=== PATIENT | female | born 1990 | race Caucasian/White ===

== ENCOUNTER → 2023-11-04 08:18 | Outpatient (BNVA) | payer BC, SELFPAY | PROVIDERS: PCP Internal Medicine; Visit Provider Physician Assistant Surgical ==

== ENCOUNTER 2023-12-02 08:44 | Outpatient (AMB) | payer BC, SELFPAY ==
--- NOTE | 2023-12-02 08:36 | MHC.OFFVISWM ---
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 She heard about our program from the internet. Her goal is to lose weight and achieve a healthy lifestyle. She reports first being concerned about her weight 20 years, highest weight to date was 255. Initial weight upon presentation of the surgical weight loss clinic on 11/04/2023 was 255.6 lb with a BMI of 42.5. Current weight is 253 pounds with a BMI of 42.1. She has tried multiple methods of weight loss including fad diets without permanent results. She lives with her BF and kid. 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 She wakes at:?6am, and goes to bed at?1030pm. Dinner is at 5 pm. Breakfast: 2-3 eggs low carb wrap or toast AM snack: protein bar - pure protein or quest Lunch: chicken sandwich wrap or leftovers PM snack: protein cookie or chips Dinner: pasta, lasagne, hot dogs, mac and cheese After dinner: ice cream Other snacks: chips, peanut butter, cookies Liquids: 80 oz water, no soda, no juice, kandis nu Alcohol/marijuana/tobacco intake: none Exercise: on/off walking pad sometimes joined [employer] in [place]. GERD score: 6 QUINN score: 2 ESS score: 7 QOL score: 113 PFSH Surgical History No pertinent past surgical history Family History Family/Other No problems noted. Social History Alcohol intake: never Patient Tobacco Use Status: Never used Tobacco Telehealth Telehealth Telehealth Platform: Telephone Location of provider rendering services: practice address Location of patient: address on file Patient Identification confirmed using: Name, : Yes Telehealth method: voice only Patient verbally consented to treatment: Yes Patient verbally consented to billing insurance company: Yes Patient informed of any privacy concerns related to visit: Yes Minutes spent on Phone/Video with Pt.: 30 Assessment & Plan Assessment & Plan (1) Morbid obesity: Code(s): E66.01 - Morbid (severe) obesity due to excess calories Category: Medical Plan: This is a?33 yo female who will start our SWL program to prepare for bariatric surgery.? Blood work, CXR, ECG, Abd US and UGI have been ordered. She is being scheduled for initial consultations. She will start SWL classes and watch the first three videos before her next appointment. 1. You have been given a link to our software familia ([employer]) to generate an individualized nutritional and exercise plan specific for you. Please send me a screenshot of the plans you will generate Meal to include lean meat (beef, fish, pork, turkey, chicken), or somali yogurt, or egg whites, or beans with a salad with olive oil and fruits (berries, pears, apples, kiwi). Avoid salt, breads, potatoes, rice, pasta, desserts. 2. If you choose shakes, each shake would be drunk slowly, like coffee over a period of 2 hours. 3. If you choose bars, cut each bar in 4 pieces and eat each piece in 30 min to make each bar last 2 hours. 4. I emphasized the importance of measuring accurately the food portion and measure it when serving the food on a plate 5. The meal portions include a specific number of forks of meat (protein) and salad. You always eat the meat portion but you can replace up to half of salad/vegetables portion with rice, potatoes or pasta, or a fruit ?if you like. The less you do it the better weight loss will be. 6. One full-size fork is what can be scooped on the fork without falling aside and not what can be bit with the fork. Use regular forks like those you find in a typical restaurant. 7.? Please send me weight measurements from your body composition scale as soon as possible and then once a week. Always include your diet and exercise plan. The best time to weigh yourself is first thing in the morning after going to the bathroom. 8. The best choice for exercise would be treadmill, stationary bike or elliptical. Please return to your gym, [facility] in [place]. Try all the machines to see which one ou like best in the hopes you will be able to purchase a machine for home use. Alternatively start walking outside daily, tracking calories with a goal of 300 calories per day, daily. You can download the familia Context Relevant which can track your time, distance and calories while walking outside. You press start in the familia when you start and then stop when you are finished. 9.?Goal is to lose at least 1.5-2 lbs per week, and about 10% before surgery, which is about 25 pounds 10. Please follow the diet plan exactly without any change. If you don't like something about the plan or you feel hungry you need to communicate with me so I can help you revise the plan. My cell phone number to communicate with me by text is [phone] Patient is morbidly obese and is not considered stable at this time.?I spent a total of 70 minutes reviewing/updating records, examining the patient and counseling the patient on weight management as detailed above. Orders: Orders Hemoglobin A1c Today E66.01 - Morbid (severe) obesity due to excess calories Complete Blood Count Auto Diff Today E66.01 - Morbid (severe) obesity due to excess calories Vitamin B1 Today E66.01 - Morbid (severe) obesity due to excess calories Vitamin A Today E66.01 - Morbid (severe) obesity due to excess calories TSH reflex Free T4 Today E66.01 - Morbid (severe) obesity due to excess calories Vitamin D 25-OH Total Today E66.01 - Morbid (severe) obesity due to excess calories US abdomen comp w elastography Today E66.01 - Morbid (severe) obesity due to excess calories FL upper GI w air Today E66.01 - Morbid (severe) obesity due to excess calories Insulin Today E66.01 - Morbid (severe) obesity due to excess calories Lipid Panel Today E66.01 - Morbid (severe) obesity due to excess calories IRON PROFILE Today E66.01 - Morbid (severe) obesity due to excess calories Comprehensive Met. Panel Today E66.01 - Morbid (severe) obesity due to excess calories Vitamin B12 and Folate Today E66.01 - Morbid (severe) obesity due to excess calories Zinc Today E66.01 - Morbid (severe) obesity due to excess calories C Reactive Protein Today E66.01 - Morbid (severe) obesity due to excess calories Ferritin Today E66.01 - Morbid (severe) obesity due to excess calories XR chest 2V Today E66.01 - Morbid (severe) obesity due to excess calories ECG 12 lead EKG Today E66.01 - Morbid (severe) obesity due to excess calories Referrals Behavioral Health Referral E66.01 - Morbid (severe) obesity due to excess calories
[2023-12-02 08:40] VITALS: BMI 42.1
== END 2023-12-02 09:24 | disposition home or self-care (01) ==
LOC: HO.HBS 08:44
PROVIDERS: PCP Internal Medicine; Visit Provider Physician Assistant Surgical
DX: E66.01 Morbid (severe) obesity due to excess calories (principal); Z68.41 Body mass index [BMI] 40.0-44.9, adult
CPT/HCPCS: 99205

== ENCOUNTER → 2023-12-02 08:44 | Outpatient (BNVA) | payer BC, SELFPAY | PROVIDERS: PCP Internal Medicine; Visit Provider Physician Assistant Surgical ==

== ENCOUNTER 2023-12-12 08:23 | Outpatient (AMB) | payer BC, SELFPAY ==
--- NOTE | 2023-12-12 08:13 | A.OFFWM_ITS ---
Intake Intake Visit Reasons: VIDEO Intake Allergies No Known Allergies Allergy (Verified 11/04/23 08:41) [facility] Surgical History No pertinent past surgical history Family History Family/Other No problems noted. Social History Alcohol intake: never Patient Tobacco Use Status: Never used Tobacco Behavioral Health Assessment Weight Management Therapy Therapy Notes Details assessment for Weight management program. Presenting Concerns Referral Source Client is self-referred to the program, and she sees MB at [facility] Reason for referral Completion of behavioral health assessment as part of process for weight-loss surgery. Precipitating Event Obesity. Right now is the heaviest she has ever been and is hard to keep up with her kid. Living Situation Current Living Situation Own At risk of losing current housing? No Satisfied with current living situation? Yes Comments Pt lives with her boyfriend and her son. Food/Weight/Diet Expectations of change Goal is to lose at least 1.5-2 lbs. per week, and about 10% before surgery, which is about 25 pounds. PT reports she wants something permanent that will help her to be active, healthier and get rid of her back issues. History/Relationship with food Growing up as a family they used to eat a lot. Her grandmother would diet and she along with her, they would lose 10Lbs but then gain 15 lbs. In childhood her meals were described like this: Breakfast: cereal, lunch was a sandwich with chips, dinner: steak with potatoes and a lot of snacking in between. Example of meals before starting the program. Breakfast: eggs with Burmese cheese in a wrap snack: Protein bar. Lunch: Leftovers or a salad. Snack: chips Dinner: Lasagna, hot dogs, chicken nuggets. Take out 2 times at week (Michael Boss, pizza, Syriac) Dessert: ice-cream. Pm snacks: chips. History/Relationship with weight Overweight since she was 7 year old. Her mom and grandmother were obese. In the last 10 years her lowest weight was 190Lbs and highest is 250Lbs (non- ). When 4 years ago she was 280Lbs and at the end of showed signs of preeclampsia. History/Relationship with dieting - Pt has tried Atkins, weight watchers. -Have lost substantial weight in the pas t working out and tracking macros. At 15 she lost 70Lbs and then at age 19 and lost around the same. She was very regimental while doing this, but once she reached a goal she stop attending the gym and fall back into old eating habits. Binge Eating Do you frequently eat large amounts of food in short periods of time, not feeling physically hungry? Yes Do you feel out of control when you eat a large amount of food in a short period of time? Yes Do you eat large amounts of food rapidly and typically alone? Yes Night Eating Do you wake up at least once during the night to eat? No If you wake up in the night, do you find that it is necessary to eat something in order to fall back asleep? No Do you have little or no appetite in the morning and feel very hungry in the evening, often overeating between dinner and when you go to bed? Yes Social History Family history and relationship PT is in a relationship with current partner 7 years ago, and they have a 3 year old son. Father alive but she doesn't have any contact with him. Mother alive and lives in an in-law apartment in her basement. She has a small family. Was very close to her maternal grandmother who . Mom has some siblings but they aren't close. Parental/Familial hand developer obligations 3 year old son. Developmental history and status None reported. Social support Mom and boyfriend. Community support None. Pentecostalism/Spirituality None. Cultural/Ethnic information . Legal Involvement and History Current or historical involvement with the legal system? None reported. Education Highest grade completed Bachelor's degree. Preferred learning style Written Currently enrolled in educational program? No Interested in further educational program? 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 Employment Employment Status [employer] (Remote job. ) Wants help to find employment? No Meaningful activities Write, read, go hiking. Financial Situation Describe current financial situation Comfortable Financial assistance? None Service Service? No Mental Health and Addiction Treatment Current/Past substance abuse? Yes (When younger smoked marijuana for couple years. ) Comments Alcohol: denies. Cigarettes: None Denies use of edibles. Current/Past addictive behavior concerns? No Psychiatric history PT reports she currently attends counseling, and has been on and off since a teenager. Currently she is working on motherhood challenges and learning to self-regulate to better support her son. They do neurofeedback and this is also helping with sleeping issues she had. As a teenager due to depression, as she grew up she comes back when feel she needs the support. Denies any Hx of SI/Sa, self-harm, other-harm. Never in Crisis or inpatient for mental health. Medical and Physical Health Summary Additional Medical History not covered in history scoliosis leading to back problems. Sexual History concerns None reported. Physical exam in the last year? No Pain Screening Current pain? No Pain in the last few months? Yes Comments Back pain due to scoliosis. In September she had a lapse with pain due to sciatica and scoliosis. Medications Is the patient compliant with medications? Not applicable Does the patient have Caraballo Guardian in place? Not applicable Does the patient use complimentary health approaches? Yes (Biofeedback.) Trauma/Abuse History History of trauma? No Questionnaires PHQ-9 Over the last 2 weeks, how often have you been bothered by any of the following problems? 1. Little interest or pleasure in doing things: not at all 2. Feeling down, depressed, or hopeless: not at all 3. Trouble falling or staying asleep, or sleeping too much: several days 4. Feeling tired or having little energy: several days 5. Poor appetite or overeating: several days 6. Feeling bad about yourself - or that you are a failure or have let yourself or your family down: not at all 7. Trouble concentrating on things, such as reading the newspaper or watching television: not at all 8. Moving or speaking so slowly that other people could have noticed. Or the opposite - being so fidgety or restless that you have been moving around a lot more than usual: not at all 9. Thoughts that you would be better off or of hurting yourself in some way: not at all Total score: 3 Depression Screening Interpretation: Negative (Scores from when she started program. Will administer again next visit. ) Depression Screening Done: Yes Source: Developed by Drs. Jeremias Montesinos, Joan Gutierres, Kev Mcgarry and colleagues, with an educational juan from [employer]. Binge Eating Scale Group 1 A. I don't feel self-conscious about my wt. or body size when I'm with others. B. I feel concerned about how I look to others, but it normally does not make me fell disappointed with myself C. I do get self-conscious about my appearance and wt. which makes me feel disappointed in myself. D. I feel very self-conscious about my wt. and frequently I feel intense shame and disgust for myself. I try to avoid social contacts because of my self-consciousness. Response Group 1: C Group 2 A. I don't have any difficulty eating slowly in the proper manner. B. Although I seem to gobble down foods, I don't end up feeling stuffed because of eating to much. C. At times, I tend to eat quickly and then, I feel uncomfortably full afterw ards. D. I have the habit of bolting down my food, without really chewing it. When this happens I usually feel uncomfortably stuffed because I've eaten to much. Response Group 2: C Group 3 A. I feel capable to control my eating urges when I want to. B. I feel like I have failed to control my eating more than the average person. C. I feel utterly helpless when it comes to feeling in control of my eating urges. D. Because I feel so helpless about controlling my eating I have become very desperate about trying to get control. Response Group 3: B Group 4 A. I don't have the habit of eating when I'm bored. B. I sometimes eat when I'm bored, but often I'm able to get busy and get my mind off food. C. I have a regular habit of eating when I'm bored, but occasionally, I can use some other activity to get my mind off eating. D. I have a strong habit of eating when I'm bored. Nothing seems to help me breath the habit. Response Group 4: D Group 5 A. I'm usually physically hungry when I eat something. B. Occasionally, I eat something on impulse even though I really am not hungry. C. I have the regular habit of eating foods, that I might not really enjoy, to satisfy a hungry feeling even though physically, I don't need the food. D. Although I'm not physically hungry, I get a hungry feeling in my mouth that only seems to be satisfied when I eat a food, like sandwich, that fills my mouth. Sometimes, when I eat the food to satisfy my mouth hunger, I then spit the food out so I won't gain weight. Response Group 5: B Group 6 A. I don't feel any guilt or self-hate after I overeat. B. After I overeat, occasionally I feel guilt or self-hate. C. Almost all the time I experience strong guilt or self-hate after I overeat. Response Group 6: B Group 7 A. I don't lose total control of my eating when dieting even after periods when I overeat. B. Sometimes when I eat a forbidden food on a diet, I feel like I blew it and eat even more. C. Frequently, I have the habit of saying to myself, I've blown it now, why not go all the way, when I overeat on a diet. When that happens I eat more. D. I have a regular habit of starting a strict diets for myself but I break the diets by going on an eating binge. My life seems to be either a feast or famine. Response Group 7: B Group 8 A. I rarely eat so much food that I feel uncomfortably stuffed afterwards. B. Usually about once a month, I each such a quantity of food, I end up feeling very stuffed. C. I have regular periods during the month when I eat large amounts of food, either at mealtime or at snacks. D. I eat so much food that I regularly feel quite uncomfortable after eating and sometimes a bit nauseous. Response Group 8: C Group 9 A. My level of calorie intake does not go up very high or go down very low on a regular basis. B. Sometimes after I overeat, I will try to reduce my caloric intake to almost nothing to compensate for the excess calories I've eaten. C. I have a regular habit of overeating during the night. It seems that my routine is not to be hungry in the morning but overeat in the evening. D. In my adult years, I have had week-long periods where I practically starve myself. This follows periods when I overeat. It seems I live a life of either feast or famine. Response Group 9: A Group 10 A. I usually am able to stop eating when I want to. I know when enough is enough. B. Every so often, I experience a compulsion to eat which I can't seem to co ntrol. C. Frequently, I experience strong urges to eat which I seem unable to control, but at other times I can control my eating urges. D. I feel incapable of controlling urges to eat. I have a fear of not being able to stop eating voluntarily. Response Group 10: B Group 11 A. I don't have any problem stopping eating when I feel full. B. I usually can stop eating when I feel full but occasionally overeat leaving me feeling uncomfortably stuffed. C. I have a problem stopping eating once I start and usually I feel uncomfortably stuffed after I eat a meal. D. Because I have a problem not being able to stop eating when I want, I sometimes have to induce vomiting to relieve my stuffed feeling. Response Group 11: C Group 12 A. I seem to eat just as much when I'm with others, Family social gatherings as when I'm by myself. B. Sometimes, when I'm with other persons, I don't eat as much as I want to eat because I'm self-conscious about my eating. C. Frequently, I eat only a small amount of food when others are present, because I'm very embarrassed about my eating. D. I feel so ashamed about overeating that I pick times to overeat when I know no one will see me. I feel like a closet eater. Response Group 12: B Group 13 A. I eat three meals a day with only an occasional between meal snack. B. I eat 3 meals a day, but I also normally snack between meals. C. When I am snacking heavily, I get in the habit of skipping regular meals. D. There are regular periods when I seem to be continually eating, with no planned meals. Response Group 13: B Group 14 A. I don't think much about trying to control unwanted eating urges. B. At least some of the time, I feel my thoughts are pre-occupied with trying to control my eating urges. C. I feel that frequently I spend much time thinking about how much I ate or about trying not to eat anymore. D. It seems to me that most of my waking hours are pre-occupied by thoughts about eating or not eating. I feel like I'm constantly struggling not to eat. Response Group 14: C Group 15 A. I don't think about food a great deal. B. I have strong craving for food but they last only for brief periods of time. C. I have days when I can't seem to think about anything else but food. D. Most of my days seem to be pre-occupied with thoughts about food. I feel like I live to eat. Response Group 15: C Group 16 A. I usually know whether or not I'm physically hungry. I take the right portion of food to satisfy me. B. Occasionally, I feel uncertain about knowing whether or not I'm physically hungry. A these times it's hard to know how much food I should take to satisfy me. C. Even though I might know how many calories I should eat, I don't have any idea what is a normal amount of food for me. Response Group 16: C Binge Eating Score: 24 Score less than 17 Minimal Risk Score between 18-26 Moderate Risk Score between 27-46 High Risk Assessment & Plan Assessment & Plan (1) Adjustment disorder: Code(s): F43.20 - Adjustment disorder, unspecified Qualifiers: Adjustment disorder type: unspecified type Qualified Code(s): F43.20 - Adjustment disorder, unspecified Plan Pt not cleared today, we will meet again on 12/27/23 at 8am for a follow up and finish assesment. PHQ-9 will be administered, and we will explore, emotional eating, binge-eating behaviors, needs and how is she doing with this program. Telehealth Telehealth Telehealth Platform: Dox[employer]ity Location of provider rendering services: other Location of patient: address on file Patient Identification confirmed using: Name, : Yes Telehealth method: voice only Patient verbally consented to treatment: Yes Patient verbally consented to billing insurance company: Yes Patient informed of any privacy concerns related to visit: No Minutes spent on Phone/Video with Pt.: 55 Coding Level of Care Code New Pt Tele Psy Diag Eval ([id number]) Patient Type New Diagnoses Adjustment disorder, unspecified type F43.20 Adjustment disorder type: unspecified type Time Spent (min) 55 Comment 8:05-9:00
== END 2023-12-12 09:06 | disposition home or self-care (01) ==
LOC: HO.HBST 08:23
PROVIDERS: PCP Internal Medicine; Visit Provider Counselor Mental Health
DX: F43.20 Adjustment disorder, unspecified (principal)
CPT/HCPCS: 90791

== ENCOUNTER → 2023-12-12 08:23 | Outpatient (BNVA) | payer BC, SELFPAY | PROVIDERS: PCP Internal Medicine; Visit Provider Counselor Mental Health ==

== ENCOUNTER 2023-12-16 08:05 | Outpatient (REF) | payer BC, SELFPAY ==
--- NOTE | ~2023-12-16 | XR_ITS ---
EXAMINATION: XR CHEST, 2 VIEWS CLINICAL INFORMATION: Morbid obesity. COMPARISON: None. TECHNIQUE: PA and lateral views of the chest were obtained. FINDINGS: Lungs are clear. No consolidation, pneumothorax, or pleural effusion. Cardiac and mediastinal contours are normal. Pulmonary vasculature is unremarkable. Trachea is midline. Osseous structures are unremarkable. XR/XR chest 2V IMPRESSION: Normal chest radiographs. Electronically signed by: Bo Hoff MD 01/09/2024 05:44 PM EDT
[2023-12-16 08:23] LABS: MANUAL DIFF FLAG NO
--- NOTE | 2023-12-16 08:39 | ECG_ITS ---
Test Reason : E66.01 Blood Pressure : / mmHG Vent. Rate : 071 BPM Atrial Rate : 071 BPM P-R Int : 136 ms QRS Dur : 072 ms QT Int : 394 ms P-R-T Axes : 035 029 035 degrees QTc Int : 428 ms Normal sinus rhythm Normal ECG No previous ECGs available Referred By: Vaibhav Urena Electronically Signed By:OBINNA SALEH
[2023-12-16 08:56] LABS: Basophils Percent Auto 0.4 % (0-2); Eosinophils Absolute Auto 0.1 X10*3/uL (0.0-0.4); Eosinophils Percent Auto 1.1 % (0-4); Hematocrit 41.1 % (37.0-47.0); Imm Gran Abs Auto 0.01 X10*3/uL (0.00-0.03); Imm Gran Pct Auto 0.2 % (0.0-0.4); Lymphocytes Absolute Auto 1.5 X10*3/uL (1.2-4.9); Lymphocytes Percent Auto 28.5 % (20-40); Mean Corpuscular HGB Conc 31.6 g/dl (31.0-35.0); Mean Corpuscular Hemoglobin 24.8 pg (27.0-33.0); Mean Corpuscular Volume 78.3 fL (80.0-98.0); Mean Platelet Volume 10.7 fL (9.4-12.3); Monocytes Absolute Auto 0.3 X10*3/uL (0.1-1.2); Monocytes Percent Auto 6.1 % (2-11); Neutrophils Absolute Auto 3.4 x10*3/uL (2.0-8.3); Neutrophils Percent Auto 63.7 % (45-73); Platelet Count 200 X10*3/uL (160-400); Red Blood Count 5.25 X10*6/uL (4.20-5.50); White Blood Count 5.3 X10*3/uL (4.8-10.8)
[2023-12-16 09:26] LABS: Estimated Average Glucose 108 mg/dL; Hemoglobin A1c % 5.4 % (<6.0)
[2023-12-16 09:42] LABS: Alanine Aminotransferase 18 U/L (0-31); Albumin Level 4.5 g/dL (3.5-5.0); Alkaline Phosphatase 72 U/L (39-117); Anion Gap 10 (12-20); Aspartate Amino Transferase 21 U/L (5-31); Bilirubin Total 0.4 mg/dL (0.0-1.0); Blood Urea Nitrogen 12 mg/dL (9-16); Carbon Dioxide 27 mmol/L (22-29); Chloride 106 mmol/L (96-108); Cholesterol 209 mg/dL (<200); Estimated Glomerular Filt Rate > 60; Glucose Random 100 mg/dL (60-115); HDL Cholesterol 43 mg/dL (>40); Iron 51 mcg/dL (30-160); LDL Cholesterol Calculated 139 mg/dL (<100); Percent Iron Saturation 17 % (15-50); Potassium 3.8 mmol/L (3.3-5.1); Sodium 139 mmol/L (135-145); Total Iron Binding Capacity 306 mcg/dL (228-428); Total Protein 7.9 g/dL (6.5-8.0); Triglycerides 136 mg/dL (<150); Unsaturated Iron Binding 255 ug/dL
[2023-12-16 10:14] LABS: Folate 10.9 ng/mL (> or = 4.0); Vitamin B12 790 pg/mL (200-900)
[2023-12-16 10:23] LABS: Ferritin 48 ng/mL (10-122); TSH reflex Free T4 0.85 uIU/mL (0.32-4.0); Vitamin D 25-OH Total 34.7 ng/mL (>30)
[2023-12-16 10:46] LABS: Insulin 10 uU/mL (2-29)
[2023-12-20 16:43] LABS: Zinc 75 mcg/dL (60-130)
[2023-12-22 02:18] LABS: Vitamin A 45 mcg/dL (38-98)
[2023-12-23 06:28] LABS: Vitamin B1 <6 nmol/L (8-30)
== END 2023-12-16 08:06 | disposition home or self-care (01) ==
LOC: HO.XRAY 08:05
PROVIDERS: PCP Internal Medicine; Visit Provider Physician Assistant Surgical
DX: E66.01 Morbid (severe) obesity due to excess calories (principal); Z13.1 Encounter for screening for diabetes mellitus
CPT/HCPCS: 36415; 71046; 80053; 80061; 82306; 82607; 82728; 82746; 83036; 83525; 83540; 84425; 84443; 84590; 84630; 85025; 86140; 93005

== ENCOUNTER 2023-12-23 07:56 | Outpatient (AMB) | payer BC, SELFPAY ==
--- NOTE | 2023-12-23 10:21 | MHC.OFFVISWM ---
VS Expanded 12/23/23 10:43 Height 5 ft 5 in Weight 247 lb 5 oz BMI 41.2 Body Fat % 48.9 Body Fat Mass 121 Fat Free Mass 126.4 Visceral Fat Rating 14 Body Water % 36.4 Body Water Mass 90 Basal Metabolic Rate/Score 1,724 Intake Visit Reasons: TV Follow Up ROBIN / Vaibhav Allergies No Known Allergies Allergy (Verified 12/23/23 10:22) Medication List - Last Reconciled 12/23/23 by Jeremi Jung MD biotin 1 mg PO DAILY multivitamin (Daily Multi-Vitamin tablet) 1 tab PO DAILY thiamine HCl (vitamin B1) 100 mg PO DAILY HPI HPI TV Follow Up ROBIN / Vaibhav : Details: Start time: 10.08am, End time: 10.48am ?I spent 35 minutes speaking with the patient on the phone plus an additional 5 minutes reviewing and updating records for a total of 40 minutes HPI Comments Details: Overall weight loss: 8.1lbs, or 3.17% TBWL Is doing 2 powdered Premier shake (1/2 scoop in 8oz almond milk), 1/2 Pure protein bar, one meal (9 forks of protein and 9 forks of salad or vegetables) and another 1/2 Pure protein bar after dinner Exercise: walking outside [facility] Medical History (Updated 12/23/23 @ 10:23 by Jeremi Jung MD) Scoliosis Hyperlipidemia Surgical History No pertinent past surgical history Family History Family/Other No problems noted. Social History Alcohol intake: never Patient Tobacco Use Status: Never used Tobacco Telehealth Telehealth Telehealth Platform: Telephone Location of provider rendering services: practice address Location of patient: address on file Patient Identification confirmed using: Name, : Yes Telehealth method: voice only Patient verbally consented to treatment: Yes Patient verbally consented to billing insurance company: Yes Patient informed of any privacy concerns related to visit: Yes Minutes spent on Phone/Video with Pt.: 40 Assessment & Plan Assessment & Plan (1) Morbid obesity: Code(s): E66.01 - Morbid (severe) obesity due to excess calories Category: Medical Plan: 1. Plan for lap sleeve gastrectomy. If diaphragmatic or ventral hernias are present at time of surgery, these will be repaired laparoscopically as well. Risks and complications include possible conversion to an open procedure, anastomotic leak, bleeding requiring transfusion, small bowel obstruction, , DVT and pulmonary embolism, cardiac, or pulmonary complications, as intermodal dispatcher complications such as anastomotic ulcer, insufficient weight loss and vitamin deficiencies. I emphasized the importance of close follow-up, adherence to instructions and good communication. 2. Change nutritional plan to 2 powdered Premier shake (ONE scoop EACH in 8oz almond milk), one Pure protein bar, one meal (9 forks of protein and 9 forks of salad or vegetables) and another whole Pure protein bar after dinner 3. Create an exercise plan with the Prepmatic familia 4. Send me weight measurements weekly
[2023-12-23 10:43] VITALS: BMI 41.2
== END 2023-12-23 10:49 | disposition home or self-care (01) ==
LOC: HO.HBS 07:56
PROVIDERS: PCP Internal Medicine; Visit Provider Surgery
DX: E66.01 Morbid (severe) obesity due to excess calories (principal)
CPT/HCPCS: 99214

== ENCOUNTER → 2023-12-23 07:56 | Outpatient (BNVA) | payer BC, SELFPAY | PROVIDERS: PCP Internal Medicine; Visit Provider Surgery ==

== ENCOUNTER → 2023-12-27 14:19 | Outpatient (BNVA) | payer BC, SELFPAY | PROVIDERS: PCP Internal Medicine; Visit Provider Counselor Mental Health ==

== ENCOUNTER → 2023-12-27 14:19 | Outpatient (AMB) | payer BC, SELFPAY ==
--- NOTE | 2023-12-27 14:20 | A.OFFWM_ITS ---
Intake Intake Visit Reasons: VIDEO BH F/U Allergies No Known Allergies Allergy (Verified 12/23/23 10:22) [facility] Medical History (Updated 12/23/23 @ 10:23 by Jeremi Jung MD) Scoliosis Hyperlipidemia Surgical History No pertinent past surgical history Family History Family/Other No problems noted. Social History Alcohol intake: never Patient Tobacco Use Status: Never used Tobacco Behavioral Health Assessment Weight Management Therapy Therapy Notes Details PT is a 33 years old female, who presents for a second visit to complete assessment as part of surgical weight loss program. PT is interested in bariatric surgery due to obesity, her goals are to improve her lifestyle and being active and kepp up with child. PT reports that since starting the program, she has noticed major changes such as becoming conscious when eating, not eating as fast, no longer engaging in eating when bored, or praising her after a good/bad day with food. Thoughts around food have decreased, she's feeling milan quickly and last week she had to eat something out of the plan and did not feel as guilty as she would have. PT denies any major mental health issue leading to crisis or hospitalization in the past, however she attendos counseling and has been doing biofeedback for stress management and sleep issues. PT also, denies any history or recent safety concerns around SI/SA and/or self-harm/other-harm, also there is no history of substance use reported. Pattient siclosed some mild- stress/emotional-eating in the past, however this has resolved, and scores from BES suggest low risk for binge eating behavior as her issues where more to eating habits; PHQ- scores also showed no active symptoms/concerns with depres messi. On the other hand, mental status exam is within normal limits, suggesting person's functioning is not impaired. At this time patient is cleared from the behavioral health standpoint. Presenting Concerns Referral Source Client is self-referred to the program, and she sees MB at [facility] Reason for referral Completion of behavioral health assessment as part of process for weight-loss surgery. Precipitating Event Obesity. Right now is the heaviest she has ever been and is hard to keep up with her kid. Living Situation Current Living Situation Own At risk of losing current housing? No Satisfied with current living situation? Yes Comments Pt lives with her boyfriend and her son. Food/Weight/Diet Expectations of change Goal is to lose at least 1.5-2 lbs. per week, and about 10% before surgery, which is about 25 pounds. PT reports she wants something permanent that will help her to be active, healthier, and get rid of her back issues. Updates 12/26 Current meal: 2 shakes, 2 bars, and 1 meal. Exercise: gym membership. She goes 4 days a week. History/Relationship with food Growing up as a family they used to eat a lot. Her grandmother would diet and she along with her, they would lose 10Lbs but then gain 15 lbs. In childhood her meals were described like this: Breakfast: cereal, lunch was a sandwich with chips, dinner: steak with potatoes and a lot of snacking in between. Example of meals before starting the program. Breakfast: eggs with Maldivian cheese in a wrap snack: Protein bar. Lunch: Leftovers or a salad. Snack: chips Dinner: Lasagna, hot dogs, chicken nuggets. Take out 2 times at week (Michael Boss, pizza, Serbian) Dessert: ice-cream. Pm snacks: chips. History/Relationship with weight Overweight since she was 7 year old. Her mom and grandmother were obese. In the last 10 years her lowest weight was 190Lbs and highest is 250Lbs (non-). When 4 years ago she was 280Lbs and at the end of showed signs of preeclampsia. History/Relationship with dieting - Pt has tried Atkins, weight watchers. -Have lost substantial weight in the pas t working out and tracking macros. At 15 she lost 70Lbs and then at age 19 and lost around the same. She was very regimental while doing this, but once she reached a goal she stop attending the gym and fall back into old eating habits. Binge Eating Do you frequently eat large amounts of food in short periods of time, not feeling physically hungry? Yes Do you feel out of control when you eat a large amount of food in a short period of time? Yes Do you eat large amounts of food rapidly and typically alone? Yes Night Eating Do you wake up at least once during the night to eat? No If you wake up in the night, do you find that it is necessary to eat something in order to fall back asleep? No Do you have little or no appetite in the morning and feel very hungry in the evening, often overeating between dinner and when you go to bed? Yes Social History Family history and relationship PT is in a relationship with current partner 7 years ago, and they have a 3 year old son. Father alive but she doesn't have any contact with him. Mother alive and lives in an in-law apartment in her basement. She has a small family. Was very close to her maternal grandmother who . Mom has some siblings but they aren't close. Parental/Familial ferry terminal supervisor obligations 3 year old son. Developmental history and status None reported. Social support Mom and boyfriend. Community support None. Samaritan/Spirituality None. Cultural/Ethnic information . Legal Involvement and History Current or historical involvement with the legal system? None reported. Education Highest grade completed Bachelor's degree. Preferred learning style Written Currently enrolled in educational program? No Interested in further educational program? 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 ) Wants help to find employment? No Meaningful activities Write, read, go hiking. Financial Situation Describe current financial situation Comfortable Financial assistance? None Service Service? No Mental Health and Addiction Treatment Current/Past substance abuse? Yes (When younger smoked marijuana for couple years. ) Comments Alcohol: denies. Cigarettes: None Denies use of edibles. Current/Past addictive behavior concerns? No Psychiatric history PT reports she currently attends counseling, and has been on and off since a teenager. Currently she is working on motherhood challenges and learning to self-regulate to better support her son. They do neurofeedback and this is also helping with sleeping issues she had. As a teenager due to depression, as she grew up she comes back when feel she needs the support. Denies any Hx of SI/Sa, self-harm, other-harm. Never in Crisis or inpatient for mental health. Medical and Physical Health Summary Additional Medical History not covered in history scoliosis leading to back problems. Sexual History concerns None reported. Physical exam in the last year? No Pain Screening Current pain? No Pain in the last few months? Yes Comments Back pain due to scoliosis. In September she had a lapse with pain due to sciatica and scoliosis. Medications Is the patient compliant with medications? Not applicable Does the patient have Caraballo Guardian in place? Not applicable Does the patient use complimentary health approaches? Yes (Biofeedback.) Trauma/Abuse History0 History of trauma? No Questionnaires PHQ-9 Over the last 2 weeks, how often have you been bothered by any of the following problems? 1. Little interest or pleasure in doing things: not at all 2. Feeling down, depressed, or hopeless: not at all 3. Trouble falling or staying asleep, or sleeping too much: several days (Trouble falling) 4. Feeling tired or having little energy: several days 5. Poor appetite or overeating: not at all 6. Feeling bad about yourself - or that you are a failure or have let yourself or your family down: not at all 7. Trouble concentrating on things, such as reading the newspaper or watching television: not at all 8. Moving or speaking so slowly that other people could have noticed. Or the opposite - being so fidgety or restless that you have been moving around a lot more than usual: not at all 9. Thoughts that you would be better off or of hurting yourself in some way: not at all Total score: 2 Depression Screening Interpretation: Negative Depression Screening Done: Yes 07261 - PHQ-9 Billing: Yes Source: Developed by Drs. Jeremias Montesinos, Joan Gutierres, Kev Mcgarry and colleagues, with an educational juan from [employer]. Binge Eating Scale Group 1 A. I don't feel self-conscious about my wt. or body size when I'm with others. B. I feel concerned about how I look to others, but it normally does not make me fell disappointed with myself C. I do get self-conscious about my appearance and wt. which makes me feel disappointed in myself. D. I feel very self-conscious about my wt. and frequently I feel intense shame and disgust for myself. I try to avoid social contacts because of my self- consciousness. Response Group 1: C Group 2 A. I don't have any difficulty eating slowly in the proper manner. B. Although I seem to gobble down foods, I don't end up feeling stuffed because of eating to much. C. At times, I tend to eat quickly and then, I feel uncomfortably full afterwards. D. I have the habit of bolting down my food, without really chewing it. When this happens I usually feel uncomfortably stuffed because I've eaten to much. Response Group 2: C Group 3 A. I feel capable to control my eating urges when I want to. B. I feel like I have failed to control my eating more than the average person. C. I feel utterly helpless when it comes to feeling in control of my eating ur ges. D. Because I feel so helpless about controlling my eating I have become very desperate about trying to get control. Response Group 3: B Group 4 A. I don't have the habit of eating when I'm bored. B. I sometimes eat when I'm bored, but often I'm able to get busy and get my mind off food. C. I have a regular habit of eating when I'm bored, but occasionally, I can use some other activity to get my mind off eating. D. I have a strong habit of eating when I'm bored. Nothing seems to help me breath the habit. Response Group 4: D Group 5 A. I'm usually physically hungry when I eat something. B. Occasionally, I eat something on impulse even though I really am not hungry. C. I have the regular habit of eating foods, that I might not really enjoy, to satisfy a hungry feeling even though physically, I don't need the food. D. Although I'm not physically hungry, I get a hungry feeling in my mouth that only seems to be satisfied when I eat a food, like sandwich, that fills my mouth. Sometimes, when I eat the food to satisfy my mouth hunger, I then spit the food out so I won't gain weight. Response Group 5: B Group 6 A. I don't feel any guilt or self-hate after I overeat. B. After I overeat, occasionally I feel guilt or self-hate. C. Almost all the time I experience strong guilt or self-hate after I overeat. Response Group 6: B Group 7 A. I don't lose total control of my eating when dieting even after periods when I overeat. B. Sometimes when I eat a forbidden food on a diet, I feel like I blew it and eat even more. C. Frequently, I have the habit of saying to myself, I've blown it now, why not go all the way, when I overeat on a diet. When that happens I eat more. D. I have a regular habit of starting a strict diets for myself but I break the diets by going on an eating binge. My life seems to be either a feast or famine. Response Group 7: B Group 8 A. I rarely eat so much food that I feel uncomfortably stuffed afterwards. B. Usually about once a month, I each such a quantity of food, I end up feeling very stuffed. C. I have regular periods during the month when I eat large amounts of food, either at mealtime or at snacks. D. I eat so much food that I regularly feel quite uncomfortable after eating and sometimes a bit nauseous. Response Group 8: C Group 9 A. My level of calorie intake does not go up very high or go down very low on a regular basis. B. Sometimes after I overeat, I will try to reduce my caloric intake to almost nothing to compensate for the excess calories I've eaten. C. I have a regular habit of overeating during the night. It seems that my routine is not to be hungry in the morning but overeat in the evening. D. In my adult years, I have had week-long periods where I practically starve myself. This follows periods when I overeat. It seems I live a life of either feast or famine. Response Group 9: A Group 10 A. I usually am able to stop eating when I want to. I know when enough is enough. B. Every so often, I experience a compulsion to eat which I can't seem to control. C. Frequently, I experience strong urges to eat which I seem unable to control, but at other times I can control my eating urges. D. I feel incapable of controlling urges to eat. I have a fear of not being able to stop eating voluntarily. Response Group 10: B Group 11 A. I don't have any problem stopping eating when I feel full. B. I usually can stop eating when I feel full but occasionally overeat leaving me feeling uncomfortably stuffed. C. I have a problem stopping eating once I start and usually I feel uncomfortably stuffed after I eat a meal. D. Because I have a problem not being able to stop eating when I want, I sometimes have to induce vomiting to relieve my stuffed feeling. Response Group 11: C Group 12 A. I seem to eat just as much when I'm with others, Family social gatherings as when I'm by myself. B. Sometimes, when I'm with other persons, I don't eat as much as I want to eat because I'm self-conscious about my eating. C. Frequently, I eat only a small amount of food when others are present, because I'm very embarrassed about my eating. D. I feel so ashamed about overeating that I pick times to overeat when I know no one will see me. I feel like a closet eater. Response Group 12: B Group 13 A. I eat three meals a day with only an occasional between meal snack. B. I eat 3 meals a day, but I also normally snack between meals. C. When I am snacking heavily, I get in the habit of skipping regular meals. D. There are regular periods when I seem to be continually eating, with no planned meals. Response Group 13: B Group 14 A. I don't think much about trying to control unwanted eating urges. B. At least some of the time, I feel my thoughts are pre-occupied with trying to control my eating urges. C. I feel that frequently I spend much time thinking about how much I ate or about trying not to eat anymore. D. It seems to me that most of my waking hours are pre-occupied by thoughts about eating or not eating. I feel like I'm constantly struggling not to eat. Response Group 14: C Group 15 A. I don't think about food a great deal. B. I have strong craving for food but they last only for brief periods of time. C. I have days when I can't seem to think about anything else but food. D. Most of my days seem to be pre-occupied with thoughts about food. I feel like I live to eat. Response Group 15: C Group 16 A. I usually know whether or not I'm physically hungry. I take the right portion of food to satisfy me. B. Occasionally, I feel uncertain about knowing whether or not I'm physically hungry. A these times it's hard to know how much food I should take to satisfy me. C. Even though I might know how many calories I should eat, I don't have any idea what is a normal amount of food for me. Response Group 16: C Binge Eating Score: 24 Score less than 17 Minimal Risk Score between 18-26 Moderate Risk Score between 27-46 High Risk Assessment & Plan Assessment & Plan (1) Adjustment disorder: Code(s): F43.20 - Adjustment disorder, unspecified Plan After completing the assessment, comparing scores from Binge eating scale and PHQ9, with mental status evaluation and patient statements, it is considered that there is no risk and/or concerns to move forward with bariatric surgery. This patient has been cleared from standpoint and does not need to follow up with this provider either pre or post-op unless she desires. This provider has advised client to utilize available resources such as peer support group, Facebook group and group therapy, also the patient has been informed of support available at anytime while she is part of this program. Next familia: None Telehealth Telehealth Telehealth Platform: [employer] Location of provider rendering services: practice address Location of patient: address on file Patient Identification confirmed using: Name, : Yes Telehealth method: voice only Patient verbally consented to treatment: Yes Patient verbally consented to billing insurance company: Yes Patient informed of any privacy concerns related to visit: No Minutes spent on Phone/Video with Pt.: 45 Coding Level of Care Code Established Pt Tele Psytx 45 mins (67404) Patient Type Established Diagnoses Adjustment disorder F43.20 Time Spent (min) 45
== END ==
LOC: HO.HBST 14:19
PROVIDERS: PCP Internal Medicine; Visit Provider Counselor Mental Health
DX: F43.20 Adjustment disorder, unspecified (principal)
CPT/HCPCS: 90834

== ENCOUNTER 2023-12-28 08:19 | Outpatient (REF) | payer BC, SELFPAY ==
--- NOTE | ~2023-12-28 | US_ITS ---
EXAMINATION: US COMPLETE ABDOMEN WITH LIVER ELASTOGRAPHY CLINICAL INFORMATION: Morbid obesity. COMPARISON: None available. TECHNIQUE: Real-time imaging of the abdominal viscera. Noninvasive ultrasound liver fibrosis assessment is performed using Mariusz ElastPQ point quantification shear wave elastography (pSWE) with a C5-2 MHz transducer. Multiple elastography samples are obtained. FINDINGS: PANCREAS: The visualized pancreatic head and body are normal in appearance. The remainder of the pancreas is obscured from visualization by the overlying bowel gas. ABDOMINAL AORTA: The proximal, middle, and distal aortic segments are normal in caliber. INFERIOR VENA CAVA: Visualized portions are normal. LIVER: The liver demonstrates normal size and contour but with increased echogenicity suggesting hepatic steatosis. No focal lesion or intrahepatic biliary duct dilatation. The right lobe measures 16.5 cm in length. The left lobe measures 9.5 cm in length. Portal flow is towards the liver (hepatopetal). Shear wave liver elastography median stiffness is 1.44 m/s (reference: normal median stiffness is 1.3 m/s or less). IQR/median stiffness to assess sampling precision is 0.08 (reference: good quality data set is IQR/median stiffness of 0.15 or less). GALLBLADDER: Normal. The gallbladder is physiologically distended without evidence of stones, sludge, polyps, wall thickening or pericholecystic fluid. COMMON BILE DUCT: Normal in caliber measuring 0.6 cm in diameter. RIGHT KIDNEY: Normal. No hydronephrosis. No renal calculi or focal parenchymal lesions. The kidney measures 13.2 cm in maximum dimension. LEFT KIDNEY: Normal. No hydronephrosis. No renal calculi or focal parenchymal lesions. The kidney measures 12.5 cm in maximum dimension. SPLEEN: Normal. The spleen measures 11.1 cm in maximum dimension. FREE FLUID: None. US/US abdomen comp w elastography IMPRESSION: 1. Hepatic steatosis. 2. Liver elastography: In the absence of other known clinical signs, measurements rule out compensated advanced chronic liver disease. If there are known clinical signs, further testing may be needed for confirmation. REFERENCE: Society of Radiologists in Ultrasound Liver Stiffness Thresholds (2019): LIVER STIFFNESS THRESHOLDS: *Liver Stiffness equal or less than 1.3 m/s: High probability of being normal. *Liver Stiffness less than 1.7 m/s: In the absence of other known clinical signs, rules out compensated advanced chronic liver disease. *Liver Stiffness 1.7-2.1 m/s: Suggestive of compensated advanced chronic liver disease but need further test for confirmation. *Liver Stiffness over 2.1 m/s: Rules in compensated advanced chronic liver disease. *Liver Stiffness over 2.4 m/s: Suggestive of clinically significant portal hypertension. QUALITY OF DATA SET: *IQR/Median value equal or less than 0.15 implies a quality data set. *IQR/Median value over 0.15 implies a poor quality data set. SIGNIFICANT CHANGE FROM PRIOR EXAM: Significant change if liver stiffness measurement is 10% or greater from prior exam. OTHER CONSIDERATIONS: The stage of liver fibrosis may be overestimated in the setting of acute hepatitis, liver inflammation, elevated liver function tests, hepatic vascular congestion, obstructive cholestasis, non-fasting state, and infiltrative diseases such as amyloidosis and lymphoma. In some patients with NAFLD, the liver stiffness thresholds for compensated advanced chronic liver disease may be lower. In causes other than viral hepatitis and NAFLD, liver stiffness thresholds are not well established. Electronically signed by: Armani Leung MD 01/07/2024 09:05 AM EDT
== END 2023-12-28 08:20 | disposition home or self-care (01) ==
LOC: HO.US 08:19
PROVIDERS: PCP Internal Medicine; Visit Provider Physician Assistant Surgical
DX: E66.01 Morbid (severe) obesity due to excess calories (principal)
CPT/HCPCS: 76700; 76981

== ENCOUNTER 2024-01-04 06:10 | Day surgery (SDC) | payer BC, SELFPAY ==
--- NOTE | 2024-01-02 14:18 | HO.ANESPROP2 ---
Documented by User: Mary Beyer NP 01/02/24 14:18 HPI - Anesthesia Eval Consult details Narrative: 33yo F for Upper Endoscopy PMFSH Active Problems Active Problems: All Active Problems Scoliosis (Acute) Hyperlipidemia (Acute) Morbid obesity (Acute) Past Medical History Medical History Scoliosis Hyperlipidemia Family History Family History Family/Other No problems noted. Surgical History Surgical History (Updated 01/04/24 @ 07:32 by Thuy Tolentino MD) [place] teeth extracted No pertinent past surgical history Social History Social History Alcohol intake: never Patient Tobacco Use Status: Never used Tobacco Use of substances other than those prescribed or required for medical reasons: No Have you been hit, kicked, punched, or otherwise hurt by someone within the past year? If so, by whom?: No Are you DNR?: No Advance Directives: No Advance Directives Information Provided: Yes Recently lost weight without trying: No Nutrition Risks: No Nutritional Risk Meds Allergies Allergy/AdvReac Type Severity Reaction Status Date / Time No Known Allergies Allergy Verified 12/23/23 10:22 Home Medications ?Medication ?Instructions ?Recorded ?Confirmed ?Last Taken ?Type biotin 1 mg tablet 1 mg PO DAILY 11/04/23 01/04/24 01/02/24 History multivitamin (Daily Multi-Vitamin 1 tab PO DAILY 11/04/23 01/04/24 01/02/24 History tablet) Assessment and Plan Assessment Anesthesia Assessment: Chart Reviewed Documented by User: Thuy Tolentino MD 01/04/24 07:34 PMFSH Active Problems Active Problems: All Active Problems Scoliosis (Acute) Hyperlipidemia (Acute) Morbid obesity (Acute) BMI 39.6 Past Medical History Medical History Scoliosis Hyperlipidemia Family History Family History Family/Other No problems noted. Family history of problems with anesthesia: No Surgical History Surgical History (Updated 01/04/24 @ 07:32 by Thuy Tolentino MD) [place] teeth extracted No pertinent past surgical history History of Problems with Anesthesia: No Social History Social History Alcohol intake: never Patient Tobacco Use Status: Never used Tobacco Use of substances other than those prescribed or required for medical reasons: No Have you been hit, kicked, punched, or otherwise hurt by someone within the past year? If so, by whom?: No Are you DNR?: No Advance Directives: No Advance Directives Information Provided: Yes Recently lost weight without trying: No Nutrition Risks: No Nutritional Risk Meds Allergies Allergy/AdvReac Type Severity Reaction Status Date / Time No Known Allergies Allergy Verified 12/23/23 10:22 Home Medications ?Medication ?Instructions ?Recorded ?Confirmed ?Last Taken ?Type biotin 1 mg tablet 1 mg PO DAILY 11/04/23 01/04/24 01/02/24 History multivitamin (Daily Multi-Vitamin 1 tab PO DAILY 11/04/23 01/04/24 01/02/24 History tablet) Exam Height,Weight and Vital Signs: Height 5 ft 5 in Weight 107.955 kg Vital Signs Temp Pulse Resp BP Pulse Ox O2 Del Method 01/04/24 06:52 96.5 F L 75 16 130/86 96 Room Air Pertinent Lab Results Pertinent Lab Results: Lab Results 01/04/24 Range/Units 06:35 Urine Test NEGATIVE (NEGATIVE) Airway Mallampati Class: II TM Dist: >3cm Neck ROM: Full Loose/Missing/Broken Teeth: Yes ([place] teeth missing. Denies broken or loose teeth) Heart: RRR Lungs: CTAB Assessment and Plan Assessment Anesthesia Assessment: Anesthesia Plan Discussed and Chart Reviewed Final Anesthetic Review Family History of Problems with Anesthesia: No History of Problems with Anesthesia: No NPO: Yes ASA Class: III Final Preanesthetic Review: No Changes in Pt Med Stat, Meds/Allgs Chart Reviewed, Consent Obtained/Reviewed and Anes Risks/Benef Reviewed Patient Risk: Intermediate Procedure Risk: Low Assessment/Block/Sedation in SS: Assess/Block/Sedation-SS Anesthetic Plan Anesthetic Plan: TIVA Disposition: Standard PACU
[2024-01-04 06:17] VITALS: BMI 39.6
[2024-01-04] MEDS: Lactated Ringers 1,000 ML 80 ML IVCONT (06:49)
[2024-01-04 06:52] VITALS: BP 130/86; PULSE 75; RESP 16; TEMP 35.8; O2SAT 96
[2024-01-04 07:11] LABS: UPreg QC Valid YES; Urine Pregnancy NEGATIVE (NEGATIVE)
--- NOTE | 2024-01-04 07:40 | MHC.SHP ---
Pre-Procedural Eval Section A - 24 Hr Update-Section A only Date of Service: 01/04/24 The patient is an INPATIENT: No The patient has been examined within 24 hours of the surgical procedure. The History & Physical has been completed within 30 days and I have reviewed it.: Yes Section B - Complete if H&P > 30 days Chief Complaint: Morbid (severe) obesity due to excess calories Details of Present Illness: GERD Relevant Family History (Specify if Yes): No Relevant Social History: None Present Medications: None Medical History: No relevant PMH History of Previous Operations: No relevant previous surgery Allergies: Allergies Allergy/AdvReac Type Severity Reaction Status Date / Time No Known Allergies Allergy Verified 12/23/23 10:22 Review of Systems Sugical H&P ROS: Negative: Constitution, Cardiovascular, Respiratory, Neurological, Psychiatric, Hem-Onc, Allergic/Immunologic, Gastrointestinal, Genitourinary, Musculoskeletal, Integumentary, Endocrine and Eyes/Ears/Nose/Throat Exam Surgical H&P Exam: Normal: HEENT, Normal: Heart, Normal: Lungs, Normal: Extremities, Normal: Abdomen, Normal: Skin and Normal: Neurological Plan Diagnosis/Plan: Unchanged (EGD to assess etiology of GERD. Risks of bleeding and perforation were discussed with the patient and she is in agreement with the plan.) I have reviewed the history and physical and performed a pertinent physical examination on my patient. No changes have occurred unless specified. Time Spent With Patient Time: Total time managing care of this patient today ____ minutes.
[2024-01-04 08:07] VITALS: BP 107/66; PULSE 83; RESP 12; TEMP 36.1; O2SAT 94
--- NOTE | 2024-01-04 08:11 | P.BOP_ITS ---
Brief Operative Note Date of Service: 01/04/24 Pre-op diagnosis: GERD Post-op diagnosis: same Procedure: PROCEDURE DATE: 01/04/2024 PREOPERATIVE DIAGNOSIS: GERD POSTOPERATIVE DIAGNOSIS: ?Same as above. Normal endoscopy PROCEDURE: [id number]-sfizywaptubm with biopsies Surgeon: Holden Jung M.D.. Ph.D. Fiscal Agent: None ? Anesthesia: IV sedation Estimated blood loss: ?Minimal FINDINGS AND PROCEDURE: ? OPERATIVE INDICATIONS: ?The patient is a 33 year old female known to me who is interested in bariatric surgery. The patient has GERD. Based on this information I recommended an upper endoscopy to evaluate the patient's symptoms. Risks and complications of the surgery were discussed with the patient in advance particularly the possibility of perforation or bleeding that may require surgical intervention. The patient understood the risks and was in agreement with the plan. ? PROCEDURE: After informed consent was obtained by the patient, the patient was ?transferred to the Operating Room and was placed in the supine position.? After successful induction of IV sedation, a mouth block was inserted and the patient was placed in the left lateral decubitus position. An upper endoscopy was performed next, the oropharynx and esophagus appeared within the normal limits. There was no hiatal hernia. The z-line was smooth. Two biopsies were obtained from the distal esophagus 2-3 cm proximal to the GE junction and two additional biopsies from the GE junction. The stomach was entered and it appeared to be of normal size. There was no gastritis. There was no stricture or ulcer. A biopsy was obtained from the gastric fundus and the antrum. No significant bleeding was noted from any of the biopsy sites. Retroflexion of the scope revealed a normal GE junction. The scope was then advanced into the duodenum which appeared to be normal as well. At that point the duodenum ?and the stomach were decompressed and the scope was withdrawn from the patient's mouth. The patient extubated and was transferred in stable condition to the Recovery Room for further care. I was present and performed all steps of the procedure. There were no residents to assist with this case. Phillip Jung M.D., Ph.D. Surgeon: Jeremi Jung MD Anesthesia: MAC Was an Fiscal Agent used for this Procedure?: No Estimated blood loss (mL): 0 IV fluids (mL): 400 Urine output (mL): 0 (No Howard to record output) Pathology: other (1) antrum x1, 2) fundus x1, 3) GE junction x2, 4) distal esophagus x2) Condition: stable Disposition: PACU
[2024-01-04 08:22] VITALS: BP 121/71; PULSE 74; RESP 16; TEMP 36.1; O2SAT 98
[2024-01-04 08:37] VITALS: BP 108/58; PULSE 60; RESP 16; TEMP 36.1; O2SAT 98
== END 2024-01-04 08:59 | disposition home or self-care (01) ==
PROVIDERS: Nurse Practitioner; PCP Internal Medicine; Visit Provider Surgery
PROC: 0DJ08ZZ Inspection of Upper Intestinal Tract, Via Natural or Artificial Opening Endoscopic (ICD-10-PCS; CPT 43235; principal; 2024-01-04 07:30)
DX: K21.9 Gastro-esophageal reflux disease without esophagitis (principal); E66.01 Morbid (severe) obesity due to excess calories; Z68.41 Body mass index [BMI] 40.0-44.9, adult; E78.5 Hyperlipidemia, unspecified; M41.9 Scoliosis, unspecified; Z79.899 Other long term (current) drug therapy
CPT/HCPCS: 43239; 81025; 88305; 88313; 88342; J1100; J1596; J2250; J2704

== ENCOUNTER → 2024-01-04 06:10 | Outpatient (BNV) | payer BC, SELFPAY | PROVIDERS: PCP Internal Medicine; Visit Provider Surgery | DX: K21.9 Gastro-esophageal reflux disease without esophagitis (principal) | CPT/HCPCS: 43239 ==

== ENCOUNTER 2024-02-13 08:49 | Outpatient (REF) | payer BC, SELFPAY ==
--- NOTE | ~2024-02-13 | FL_ITS ---
EXAMINATION: XR FLUOROSCOPY UPPER GI WITH AIR CLINICAL INFORMATION: Preoperative evaluation prior to bariatric surgery COMPARISON: None TECHNIQUE: Fluoroscopic air contrast upper GI examination was performed utilizing standard techniques with thin and thick barium and effervescent granules. Numerous spot images were obtained. FINDINGS: Dual and single contrast images of the esophagus demonstrate normal caliber, contour, and mucosal pattern. No evidence of stricture, mass, or ulcerations identified. Esophageal peristalsis was normal. A very small type I hiatal hernia is present. Mild gastroesophageal reflux seen in the distal esophagus. Dual contrast and single contrast images of the stomach demonstrated normal contour and mucosal pattern without evidence of mass, ulceration, or other abnormality. Contrast freely passed into the gastric antrum and duodenal bulb without delay. Single and air-contrast images of the duodenal bulb demonstrate no abnormality. The duodenal sweep has a normal appearance, course, and mucosal fold appearance. The imaged proximal jejunum has a normal fold pattern and caliber. FLUOROSCOPY TIME: 3 minutes 15 seconds Number of Spot Images: 9 Number of Cine: 11 DOSE AREA PRODUCT: 2522 uGy-m2 (microgray-meter squared) FL/FL upper GI w air IMPRESSION: 1. Very small type I hiatal hernia with mild gastroesophageal reflux. 2. Otherwise unremarkable upper GI series. This procedure was performed by Edilberto Costa PA-C, and supervised by Dr. Petty Electronically signed by: Bo Petty MD 02/13/2024 01:22 PM EDT
== END 2024-02-13 08:50 | disposition home or self-care (01) ==
LOC: HO.XRAY 08:49
PROVIDERS: PCP Internal Medicine; Visit Provider Physician Assistant Surgical
DX: E66.01 Morbid (severe) obesity due to excess calories (principal)
CPT/HCPCS: 74246

== ENCOUNTER → 2024-02-13 08:50 | Outpatient (BNV) | payer BC, SELFPAY | PROVIDERS: PCP Internal Medicine; Visit Provider Radiology Diagnostic Radiology | DX: Z01.818 Encounter for other preprocedural examination (principal) | CPT/HCPCS: 74246 ==

== ENCOUNTER 2024-03-05 07:38 | Outpatient (REF) | payer BC, SELFPAY ==
[2024-03-05 08:28] LABS: MANUAL DIFF FLAG NO
[2024-03-05 08:35] LABS: Basophils Percent Auto 0.5 % (0-2); Eosinophils Absolute Auto 0.1 X10*3/uL (0.0-0.4); Eosinophils Percent Auto 1.4 % (0-4); Hematocrit 41.3 % (37.0-47.0); Hemoglobin 13.1 g/dl (12.0-16.0); Imm Gran Abs Auto 0.01 X10*3/uL (0.00-0.03); Imm Gran Pct Auto 0.2 % (0.0-0.4); Lymphocytes Absolute Auto 1.6 X10*3/uL (1.2-4.9); Lymphocytes Percent Auto 25.3 % (20-40); Mean Corpuscular HGB Conc 31.7 g/dl (31.0-35.0); Mean Corpuscular Volume 78.7 fL (80.0-98.0); Mean Platelet Volume 11.3 fL (9.4-12.3); Monocytes Absolute Auto 0.3 X10*3/uL (0.1-1.2); Monocytes Percent Auto 4.5 % (2-11); Neutrophils Absolute Auto 4.2 x10*3/uL (2.0-8.3); Neutrophils Percent Auto 68.1 % (45-73); Platelet Count 191 X10*3/uL (160-400); Red Blood Count 5.25 X10*6/uL (4.20-5.50); Red Cell Distribution Width 14.7 % (11.0-16.0); White Blood Count 6.2 X10*3/uL (4.8-10.8)
[2024-03-05 08:41] LABS: Prothrombin Time 11.2 SEC (10.9-12.4)
[2024-03-05 08:43] LABS: Partial Thromboplastin Time 31.1 SEC (26.0-36.8)
[2024-03-05 08:57] LABS: Estimated Average Glucose 105 mg/dL; Hemoglobin A1C 116.6501 umol/L; Hemoglobin A1c % 5.3 % (<6.0); Total Hemoglobin (HGBA1C) 3391.1667 umol/L
[2024-03-05 10:55] LABS: Alanine Aminotransferase 18 U/L (0-31); Albumin Level 4.2 g/dL (3.5-5.0); Alkaline Phosphatase 69 U/L (39-117); Anion Gap 13 (12-20); Aspartate Amino Transferase 27 U/L (5-31); Bilirubin Total 0.4 mg/dL (0.0-1.0); Blood Urea Nitrogen 14 mg/dL (9-16); C Reactive Protein 0.63 mg/dL (< or = 0.50); Carbon Dioxide 24 mmol/L (22-29); Chloride 104 mmol/L (96-108); Cholesterol 169 mg/dL (<200); Estimated Glomerular Filt Rate > 60; Glucose Random 90 mg/dL (60-115); HDL Cholesterol 32 mg/dL (>40); LDL Cholesterol Calculated 106 mg/dL (<100); Potassium 4.1 mmol/L (3.3-5.1); Sodium 137 mmol/L (135-145); Total Protein 7.5 g/dL (6.5-8.0); Triglycerides 155 mg/dL (<150)
[2024-03-05 11:11] LABS: Insulin 6 uU/mL (2-29); TSH reflex Free T4 1.11 uIU/mL (0.32-4.0)
== END 2024-03-05 07:39 | disposition home or self-care (01) ==
LOC: HO.LAB 07:38
PROVIDERS: PCP Internal Medicine; Visit Provider Surgery
DX: E66.9 Obesity, unspecified (principal); Z68.38 Body mass index [BMI] 38.0-38.9, adult; E78.5 Hyperlipidemia, unspecified; Z79.01 Long term (current) use of anticoagulants; Z13.1 Encounter for screening for diabetes mellitus
CPT/HCPCS: 36415; 80053; 80061; 83036; 83525; 84443; 85025; 85610; 85730; 86140

== ENCOUNTER 2024-03-07 08:16 | Inpatient (IN) | payer BC, SELFPAY ==
[2024-03-05 12:52] VITALS: BMI 37.8
--- NOTE | 2024-03-06 09:39 | HO.ANESPROP2 ---
Documented by User: Mary Beyer NP 03/06/24 09:40 HPI - Anesthesia Eval Consult details Narrative: 33yo F for Gastrectomy Sleeve- EGD, possible diapragmatic hernia, possible ventral hernia, possible open PMFSH Active Problems Active Problems: All Active Problems BMI 38.0-38.9,adult (Acute) Obesity (Acute) Morbid obesity (Acute) GERD (gastroesophageal reflux disease) (Acute) Scoliosis (Acute) Hyperlipidemia (Acute) Past Medical History Medical History Needle phobia Back pain Degenerative disc disease, lumbar GERD (gastroesophageal reflux disease) Scoliosis Hyperlipidemia Family History Family History Family/Other No problems noted. Family history of problems with anesthesia: No Surgical History Surgical History History of esophagogastroduodenoscopy (EGD) [place] teeth extracted History of Problems with Anesthesia: No Social History Social History Are you a primary healthcare project manager to a significant other at home: No Do you presently have visiting nurse or other home services: No Alcohol intake: never Patient Tobacco Use Status: Former Tobacco user Tobacco use type: Cigarette Years Smoked: 10 Use of substances other than those prescribed or required for medical reasons: No Have you been hit, kicked, punched, or otherwise hurt by someone within the past year? If so, by whom?: No Spiritual Healthcare Practices: none Gnosticist Healthcare Practices: none Cultural Healthcare Practices: none Are you DNR?: No Advance Directives: No ( is primary contat) Advance Directives Information Provided: Yes (as above noted) Advance Directives on File: No Recently lost weight without trying: No Eating poorly because of decreased appetite: No Nutrition Risks: No Nutritional Risk Patient : No FDLMP: 02/20/24 : No Poor oral hygiene: No Meds Allergies Allergy/AdvReac Type Severity Reaction Status Date / Time No Known Allergies Allergy Verified 03/07/24 08:11 Home Medications ?Medication ?Instructions ?Recorded ?Confirmed ?Last Taken ?Type biotin 1 mg tablet 1 mg PO DAILY 11/04/23 03/07/24 03/05/24 History multivitamin (Daily Multi-Vitamin 1 tab PO DAILY 11/04/23 03/07/24 03/05/24 History tablet) Exam Height,Weight and Vital Signs: Height 5 ft 5 in Weight 102.965 kg Pertinent Lab Results Pertinent Lab Results: Laboratory Tests 03/05/24 07:55 Blood Type A Positive Antibody Screen NEGATIVE Laboratory Tests 03/05/24 08:18 WBC 6.2 Hgb 13.1 Hct 41.3 Plt Count 191 Sodium 137 Potassium 4.1 Chloride 104 Carbon Dioxide 24 BUN 14 Creatinine 0.69 Narrative Narrative: EKG 2023 Vent. Rate : 071 BPM Atrial Rate : 071 BPM P-R Int : 136 ms QRS Dur : 072 ms QT Int : 394 ms P-R-T Axes : 035 029 035 degrees QTc Int : 428 ms Normal sinus rhythm Normal ECG No previous ECGs available Assessment and Plan Assessment Anesthesia Assessment: Chart Reviewed Final Anesthetic Review Family History of Problems with Anesthesia: No History of Problems with Anesthesia: No Documented by User: Thuy Tolentino MD 03/07/24 11:35 HPI - Anesthesia Eval Consult details Narrative: 33yo F for EGD, Laparoscopic Sleeve Gastrectomy, possible diapragmatic hernia repair, possible ventral hernia repair, possible open Patient admits to recent cold on auscultation revealing some wheezing bilaterally. Patient states resolved. No fever. No malaise. Face looks flushed but patient states this is her normal coloring. Cold was 3 weeks ago but patient does admit to still coughing but only when lying flat. Discussed possible complications of recent URI with patient. She understands and wishes to proceed. RA sats 96%. Will administer breathing treatment and reassess. Dr Jung informed. Lungs CTAB post albuterol treatment. Patient feels breathing better. Will proceed with surgery. PMFSH Active Problems Active Problems: All Active Problems BMI 38.0-38.9,adult (Acute) Obesity (Acute) Morbid obesity (Acute) BMI 37.1 GERD (gastroesophageal reflux disease) (Acute) Scoliosis (Acute) Hyperlipidemia (Acute) Wheezes on ausculation. Patient admits to recent cold but states 3 weeks ago but resolved. On further questioning still with some coughing when she lies flat Former smoker. Quit 10 years ago Past Medical History Medical History Needle phobia Back pain Degenerative disc disease, lumbar GERD (gastroesophageal reflux disease) Scoliosis Hyperlipidemia Family History Family History Family/Other No problems noted. Family history of problems with anesthesia: No Surgical History Surgical History History of esophagogastroduodenoscopy (EGD) [place] teeth extracted History of Problems with Anesthesia: No Social History Social History Are you a primary healthcare project manager to a significant other at home: No Do you presently have visiting nurse or other home services: No Alcohol intake: never Patient Tobacco Use Status: Former Tobacco user Tobacco use type: Cigarette Years Smoked: 10 Use of substances other than those prescribed or required for medical reasons: No Have you been hit, kicked, punched, or otherwise hurt by someone within the past year? If so, by whom?: No Spiritual Healthcare Practices: none Gnosticist Healthcare Practices: none Cultural Healthcare Practices: none Are you DNR?: No Advance Directives: No ( is primary contat) Advance Directives Information Provided: Yes (as above noted) Advance Directives on File: No Recently lost weight without trying: No Eating poorly because of decreased appetite: No Nutrition Risks: No Nutritional Risk Patient : No FDLMP: 02/20/24 : No Poor oral hygiene: No Meds Allergies Allergy/AdvReac Type Severity Reaction Status Date / Time No Known Allergies Allergy Verified 03/07/24 08:11 Home Medications ?Medication ?Instructions ?Recorded ?Confirmed ?Last Taken ?Type biotin 1 mg tablet 1 mg PO DAILY 11/04/23 03/07/24 03/05/24 History multivitamin (Daily Multi-Vitamin 1 tab PO DAILY 11/04/23 03/07/24 03/05/24 History tablet) Exam Height,Weight and Vital Signs: Height 5 ft 5 in Weight 102.965 kg Vital Signs Temp Pulse Resp BP Pulse Ox O2 Del Method 03/07/24 08:21 97.9 F 96 16 131/73 96 Room Air Pertinent Lab Results Pertinent Lab Results: Laboratory Tests 03/05/24 07:55 Blood Type A Positive Antibody Screen NEGATIVE Laboratory Tests 03/05/24 08:18 WBC 6.2 Hgb 13.1 Hct 41.3 Plt Count 191 Sodium 137 Potassium 4.1 Chloride 104 Carbon Dioxide 24 BUN 14 Creatinine 0.69 Laboratory Results - last 24 hr 03/07/24 08:15 Urine Test NEGATIVE Airway Mallampati Class: II TM Dist: >3cm Neck ROM: Full Loose/Missing/Broken Teeth: Yes ([place] teeth extracted. Crowns intact. Denies broken or loose teeth) Heart: RRR Lungs: Bilateral intermittent wheezing. CTAB post albuterol treatment Assessment and Plan Assessment Anesthesia Assessment: Anesthesia Plan Discussed and Chart Reviewed Final Anesthetic Review Family History of Problems with Anesthesia: No History of Problems with Anesthesia: No NPO: Yes ASA Class: III Final Preanesthetic Review: No Changes in Pt Med Stat, Meds/Allgs Chart Reviewed, Consent Obtained/Reviewed and Anes Risks/Benef Reviewed Patient Risk: Intermediate Procedure Risk: Intermediate Assessment/Block/Sedation in SS: Assess/Block/Sedation-SS Anesthetic Plan Anesthetic Plan: GA Disposition: Standard PACU
[2024-03-07] VITALS (15 sets, daily range): BP systolic 112–157; BP diastolic 56–87; PULSE 53–96; RESP 14–20; TEMP 36.5–36.9; O2SAT 93–99; BMI 37.1
[2024-03-07 08:27] LABS: UPreg QC Valid YES; Urine Pregnancy NEGATIVE (NEGATIVE)
[2024-03-07] MEDS: Lactated Ringers 1,000 ML 100 ML IVCONT ×2 (08:54→15:14)
[2024-03-07] MEDS: Aprepitant 32 MG/4.4 ML VIAL IVPUSH (08:55)
[2024-03-07] MEDS: Lactated Ringers 1,000 ML 999 ML IV (08:55)
--- NOTE | 2024-03-07 10:09 | MHC.SHP ---
Pre-Procedural Eval Section A - 24 Hr Update-Section A only Date of Service: 03/07/24 The patient is an INPATIENT: Yes The patient has been examined within 24 hours of the surgical procedure. The History & Physical has been completed within 30 days and I have reviewed it.: Yes Section B - Complete if H&P > 30 days Chief Complaint: Morbid (severe) obesity due to excess calories Relevant Family History (Specify if Yes): No Relevant Social History: None Present Medications: None Medical History: No relevant PMH History of Previous Operations: No relevant previous surgery Allergies: Allergies Allergy/AdvReac Type Severity Reaction Status Date / Time No Known Allergies Allergy Verified 03/07/24 08:11 Review of Systems Sugical H&P ROS: Negative: Constitution, Cardiovascular, Respiratory, Neurological, Psychiatric, Hem-Onc, Allergic/Immunologic, Gastrointestinal, Genitourinary, Musculoskeletal, Integumentary, Endocrine and Eyes/Ears/Nose/Throat Exam Surgical H&P Exam: Normal: HEENT, Normal: Heart, Normal: Lungs, Normal: Extremities, Normal: Abdomen, Normal: Skin and Normal: Neurological Plan Diagnosis/Plan: Unchanged I have reviewed the history and physical and performed a pertinent physical examination on my patient. No changes have occurred unless specified. Time Spent With Patient Time: Total time managing care of this patient today ____ minutes.
--- NOTE | 2024-03-07 10:18 | PM.OP ---
Brief Operative Note Date of Service: 03/07/24 Pre-op diagnosis: Severe obesity with comorbidities (see below) Post-op diagnosis: same Procedure: INITIAL PATIENT BMI ON PRESENTATION AT OUR OFFICE: 42.5 kg/m2 LAST BMI BEFORE SURGERY: 38.9 kg/m2 COMORBIDITIES: hyperlipidemia, scoliosis, GERD ?The patient presented to the Weight Management Program with significant obesity that was negatively impacting the patient's comorbidities as listed above.? The program is a phased program with a special focus on preoperative medical weight management to promote substantial weight loss and prepare the patients for the second phase of the program: bariatric surgery. The patient participated in an intensive weekly lifestyle ?intervention and exercise program during which the patient ?has lost between the initial office visit and the last preoperative visit 27.5 lbs, or 10.76% of initial actual body weight. It was deemed appropriate for the patient to now have bariatric surgery. In light of the current Covid-19 pandemic and the well documented strong association of obesity and increased risk of worse outcomes if infected with Covid-19 (REFERENCES:https://pubmed.ncbi.nlm.nih.gov/49937784/,?https://pubmed.ncbi.nlm.nih.gov/99272671/), any delay in undergoing bariatric surgery may lead to the patient's worsening health condition and increased?risk of more severe Covid-19 disease if infected. In addition a recent?study from [facility] published in [employer] on 04/20/2021 ([email or web address]) found that, among patients with obesity, substantial weight loss achieved with surgery was associated with improved outcomes of COVID-19 infection. The findings suggest that obesity can be a modifiable risk factor for the severity of COVID-19 infection. In addition, the patient met the BMI-criteria for bariatric surgery based on the BMI on initial presentation. The patient should not be penalized for achieving such weight loss because ?it is not sustainable long-term without surgical intervention and it was achieved in preparation for bariatric surgery ?under my direction and based on my published research ([email or web address]).[email or web address] and?[email or web address].soard.org/article/[email or web address])32115-X/pdf) ?that a 10% preoperative weight loss improves long-term weight loss after surgery and reduces perioperative complications.? Insurance carriers such as [facility] have endorsed my recommendations ?and have included in their policies criteria to include a 10% preoperative weight loss requirement. PROCEDURE: Esophago-gastroscopy, laparoscopic sleeve gastrectomy and laparoscopic gastropexy INDICATIONS: This is a 33 year-old female who was electively scheduled for laparoscopic, possibly open sleeve gastrectomy. The risks and complications of the procedure were discussed with the patient in advance, particularly the possibility of ; pulmonary embolism; staple line leak; bleeding; GERD; cardiac, pulmonary, or renal complications; as well as long-term problems such as insufficient weight loss, vitamin deficiency, strictures, or ulcers. The patient understood all the risks, and was in agreement to proceed with surgery. DESCRIPTION OF PROCEDURE: After informed consent was obtained from the patient, the patient was given preoperative antibiotics, and was transferred to the operating room. After successful induction of general anesthesia, pneumatic compression devices were placed on both lower extremities. An upper endoscopy was performed next. The oropharynx and esophagus appeared to be within normal limits. There was no diaphragmatic hernia present consistent with the findings of the preoperative upper GI. The stomach was entered. Then after all fluid and air were suctioned and the stomach was fully decompressed, the scope was withdrawn and secured in the mid esophagus. The patient was then prepped and draped in the usual sterile manner, and abdominal access was established at the right upper quadrant with the Andrew technique. A 12 mm blunt port was inserted, and the abdomen was insufflated with CO2 to a pressure of 15 mmHg. Under direct visualization, additional ports were placed, specifically two 5 mm Versi-step ports to the left upper quadrant, and a 5 mm Versi-Step port to the right upper quadrant. 1% lidocaine plain was used to infiltrate all port sites as well as all fascia defects. Following that, the patient was placed in a steep reverse Trendelenburg position. An additional 5 mm port was placed to the right flank for the Mediflex retractor that was used to retract the left lobe of the liver. The gastro-esophageal fat pad was opened with the ultrasonic device ([place], Olympus) and the anterior esophagus and hiatus were exposed. The angle of His was opened with the ultrasonic device the fundus of the stomach from any diaphragmatic and splenic attachments. I then opened the gastrocolic ligament between the transverse colon and the greater curvature of the stomach with the ultrasonic device to enter the lesser sac and facilitate the ligation of the short gastric vessels. I started at a mid-point along the greater curvature and using the Thunderbeat, all short gastric vessels were divided all the way to the angle of His until the left markus was completely dissected at its entirety. I then divided the gastro-colic ligament distally to a distance of about 3-4 cm proximal to the pylorus. The stomach was then divided transversely with three Endo KELSI-45 purple and three KELSI-60 articulating purple loads using the ThinAir Wireless stapler and loads. Every effort was made that the gastric sleeve had a tubular shape and an even caliber throughout. Once the sleeve resection was completed, the staple line of the gastric sleeve was reinforced with Hemoclips. The resected stomach was retrieved without difficulty from the Andrew port. A gastropexy was then performed in order to prevent postoperative GERD and partial gastric volvulus. Several interrupted 2.0 Surgidac sutures were placed between the sleeve's staple line and the previously divided greater omentum and gastro-colic ligament using the Endo-Stitch device. ?An upper endoscopy was performed. There was no narrowing at the GE junction. The scope was easily advanced all the way to the pylorus which was clearly visualized. There was no narrowing anywhere and the sleeve's caliber was even throughout. The sleeve's staple line was inspected and there was no evidence of ischemia, bleeding or dehiscence. At that point the gastroscope was withdrawn from the patient?s mouth while we were decompressing the bowel and the stomach from any remaining air. I looked into the lesser sac to see how the sleeve was situating and it was situating well. There was no bleeding from the staple line, spleen, or short gastric vessels. The Mediflex retractor was removed, and the undersurface of the liver was inspected and there was no bleeding. The patient was placed in supine position. I closed the fascial defect of the 12 mm port site with a figure of eight #1 Polysorb suture. Then 30cc Ropivacaine plain with 10 mg of Dexamethasone were used to infiltrate the fascial closure as well as all skin incisions. At this point, the abdomen was deflated, all ports were removed under direct vision, and no bleeding was noted from any of the port sites. The skin incisions were irrigated with saline and were closed with 4-0 absorbable monofilament sutures. Steri-Strips and OpSites were used to cover all incisions. The patient was extubated and was transferred in stable condition to the recovery room for further care. I was present and performed all littlejohn parts of the procedure. Mr. Urena was the child center assistant. There were no residents to assist with this case. Phillip Jung MD, PhD, FACS Surgeon: Jeremi Jung MD Anesthesia: GETA, local and other (TAP block) Was an [employer] used for this Procedure?: No [employer]: Vaibhav Urena Estimated blood loss (mL): 10 IV fluids (mL): 2,000 Urine output (mL): 0 (No Howard to record output) Pathology: other (Stomach) Condition: stable Disposition: PACU
[2024-03-07] MEDS: Albuterol Sulfate (0.083%) 2.5 MG/3 ML VIAL.NEB INHALE (10:19)
--- NOTE | 2024-03-07 10:21 | PM.PNGS ---
Subjective Subjective Date of Service: 03/08/24 Interval history: Feels well. Mild incisional pain. She is tolerating phase 1 bariatric diet Physical Exam Vital Signs: Vital Signs: Last Vital Signs Temp 97.9 F 03/07/24 08:21 Pulse 63 03/07/24 10:19 Resp 18 03/07/24 10:19 BP 131/73 03/07/24 08:21 Pulse Ox 96 03/07/24 08:21 O2 Del Method Room Air 03/07/24 08:21 BMI result Body Mass Index 37.1 GI: Inspection: Yes normal to inspection, Yes incision (clean, dry and intact) and Yes obesity Extrem: Right lower extremity: normal to inspection (no calf tenderness) Left lower extremity: normal to inspection (no calf tenderness) Objective Data Active Medications Lactated Ringer's (Lr) 1,000 mls @ 100 mls/hr IVCONT .Q10H [facility] Last Admin: 03/07/24 08:54 Dose: 100 mls/hr Documented By: OLEGARIO Lactated Ringer's (Lr) 1,000 mls @ 999 mls/hr IV .Q1H1M [facility] Stop: 03/07/24 10:30 Last Admin: 03/07/24 08:55 Dose: 999 mls/hr Documented By: OLEGARIO Labs 03/08/24 05:53 03/08/24 05:54 Labs: Laboratory Results - last 24 hr 03/07/24 08:15 Urine Test NEGATIVE Procedures Date of Service Date of Service: 03/08/24 Progress Note: A&P Assessment and plan (1) Obesity: Status: Acute Assessment and Plan: s/p laparoscopic sleeve gastrectomy and gastropexy Doing well Will check am labs and if OK the patient will be discharged home (2) BMI 38.0-38.9,adult: Status: Acute (3) Hyperlipidemia: Status: Acute (4) GERD (gastroesophageal reflux disease): Status: Acute (5) Scoliosis: Status: Acute (6) S/P laparoscopic sleeve gastrectomy: Status: Acute Time Spent With Patient Time: Total time managing care of this patient today ____ minutes. Quality Stroke Does the patient have a stroke diagnosis?: No VTE Prior VTE?: No VTE Risk Level:: Medical - moderate - high VTE Device Contraindication: N/A - Device Ordered VTE Drug Contraindication: Treatment Not Indicated
[2024-03-07] MEDS: ceFAZolin Sodium/Dextrose,Iso 2 GM/50 ML PIGGYBACK IV ×2 (10:48→16:28)
[2024-03-07] MEDS: Acetaminophen 1,000 MG/100 ML PIGGYBACK 400 MG IV (12:20)
[2024-03-07] MEDS: HYDROmorphone HCl 0.5 MG/0.5 ML SYRINGE 0.25 MG IVPUSH ×2 (13:05→13:15)
[2024-03-07] MEDS: Haloperidol Lactate 5 MG/ML VIAL 1 MG IVPUSH (14:00)
--- NOTE | 2024-03-07 14:00 | P.DS_ITS ---
DS: Providers Provider Date of Service: 03/08/24 Date of admission: 03/07/24 08:16 Primary care physician: Reshma Patel MD DS: Diagnosis Discharge Diagnosis (1) Obesity: Status: Acute (2) BMI 38.0-38.9,adult: Status: Acute (3) Hyperlipidemia: Status: Acute (4) GERD (gastroesophageal reflux disease): Status: Acute (5) Scoliosis: Status: Acute DS: Summary Hospital Course Hospital Course: ADMITTING DIAGNOSIS: obesity, hyperlipidemia, reflux ? DISCHARGE DIAGNOSIS: same, s/p laparoscopic sleeve gastrectomy ? PAST SURGICAL HISTORY: None ? PROCEDURE: upper endoscopy, laparoscopic sleeve gastrectomy ? DISCHARGE SUMMARY: ? History of Present Illness: ? The patient is a?33 year-old woman with a BMI of?42.1 kg/m2 and associated co- morbidities as described above. The patient had extensive work-up,lost?26.7 lbs preoperatively and was electively scheduled for laparoscopic, possible open sleeve gastrectomy and gastropexy. Risks and complications of the surgery were discussed with the patient in advance, particularly the possibility of , pulmonary embolism, anastomotic leak, bleeding, bowel injury, GERD, cardiac, renal or pulmonary complications. The patient understood all the risks and was in agreement with the surgical plan. ? Hospital Course: ? The patient underwent an uneventful laparoscopic sleeve gastrectomy with gastropexy on the day of admission. Postoperatively, the patient was transferred to the surgical floor. The patient received IV Acetaminophen and IV dilaudid for pain control. Patient was started on bariatric phase 1 diet POD #0. On postoperative day one, the patient was feeling well without nausea, vomiting, fevers, or tachycardia. The patient had some mild incisional pain and the abdomen was soft. ? On the morning of postoperative day one, the patient was continued on 1 ounce of water or ice every half hour. During the day, the patient did fairly well, having some incisional pain, but able to ambulate adequately and to tolerate liquids well. ? Since the patient is doing well, we decided that the patient was ready to be discharged. The patient was given instructions to follow-up with me next week and to call my office for any fever over 101, persistent abdominal pain, nausea, vomiting, GERD, symptoms of DVT such as calf tenderness, or leg swelling, or pulmonary embolism such as chest pain or shortness of breath. The patient was also instructed to drink 40-60 ounces of liquids per day using the 1-ounce cups. The patient had been given prescriptions for Tylenol for pain, Zofran prn for nausea, and pantoprazole and carafate previously. The patient was encouraged to ambulate and use the incentive spirometer. The patient was allowed to shower, but no baths, and encouraged to stay active at home. All of these instructions were given to the patient personally. All questions were answered and the patient understood all instructions, the instructions were also given to the patient in print. Time Attestation Total time managing care of this patient today: 25 mintues. Discharge Coordination Time (in mins): 25 Quality: Safe Use of Opioids Does Pt have an Active Cancer Diagnosis on the Problem List?: No Quality: Stroke Does the patient have a stroke diagnosis?: No Physical Exam Vital Signs: Vital Signs: Last Vital Signs Temp 97.7 F 03/07/24 12:55 Pulse 68 03/07/24 13:55 Resp 16 03/07/24 13:55 BP 137/85 03/07/24 13:55 Pulse Ox 96 03/07/24 13:55 O2 Del Method Nasal Cannula 03/07/24 13:55 O2 Flow Rate 2 03/07/24 13:55 FiO2 45 03/07/24 13:55 BMI result Body Mass Index 37.1 DS: Data Data Completed and Pending Pending studies at discharge: Pending at discharge 03/07/24 12:26 Surgical [PTH] Routine Labs on day of discharge: Laboratory Results - last 24 hr 03/07/24 08:15 Urine Test NEGATIVE Discharge Plan Discharge Anticipated Discharge Date/Time: 03/08/24 10:00 Patient Disposition: Home, Self-Care Discharge Diagnosis: Status post laparoscopic sleeve gastrectomy Referrals: Reshma Patel MD [Primary Care Provider] - 1 Week Discharge Medications: Continued ondansetron 4 mg tablet,disintegrating 4 mg PO Q12H Qty: 20 0RF Rx Instructions: Only take one every 12 hours as needed if you have nausea pantoprazole 40 mg tablet,delayed release (DR/EC) 40 mg PO DAILY Qty: 90 0RF sucralfate 100 mg/mL suspension 10 ml PO BID Qty: 600 2RF No Known Home Meds Discharge Orders: Discharge Order (Routine); Ordered 03/08/24 Ordered By: Vaibhav Urena Activity on Discharge: No heavy lifting Stand Alone Forms: Patient Portal Discharge page Print Language: Grenadian Care Plan Goals: Weight loss Health Concerns: Obesity Plan of Treatment: No tub baths, sex or returning to work until discussed at first post op appointment. No exercise, alcohol, tobacco or illegal drug use. Continue to use incentive spirometer hourly while awake. Walk in home for 5- 10 minutes every 2 hours during the first week. Follow all instructions in the bariatric handbook and call with any questions.Discharge Instructions 1. Please call your doctor or come back to the emergency room should any new symptoms arise. 2. You will receive a courtesy call from [facility] 24-48 hours after discharge. 3. Activity: abstain from alcohol, practice limited stair climbing, no bending, no driving, no exercise, no illicit substances, no lifting, no sex, no tub bath, no work. 4. Diet: continue as discussed with Dr. Jung. 5. Dressing Change/Wound Care: Your incision is covered by clear bandages and guaze underneath. If the area is tender, you may apply an ice pack for short intervals (no more than 20 minutes on, followed by at least 20 minutes off). Do not apply heat. Do not use creams, lotions, or topical antibiotics unless instructed to do so by your surgeon. These can cause infection or allergic reaction. 6. Call your doctor if: - Your temperature exceeds 101.5 F - You experience excessive pain or swelling - You have an unexpected reaction to medication - You have excessive bleeding - You experience continued vomiting/nausea - Your incision begins to separate - Your incision shows signs of infection such as increased redness, swelling, excessive pain, heat, or drainage (light blood or clear fluid is normal) 7. General instructions: No lifting greater than 5 lbs for 1 week and not more than 20lbs the next 3?weeks. No driving until seen at the office in 5-7 days after surgery. If you do not move your bowels in the next 2 days, please tell?Dr. Jung. Please walk around your home every hour or two to prevent blood clots from forming in your legs. You do not need to wake from sleeping to walk. Please sleep in a bed or couch to prevent kinking at the hips and knees. Please take your incentive spirometer (your lung bilingual sales consultant) home with you and use it for the next few days to prevent pneumonia. You may shower, no hot tubs, baths or swimming pools.?Please follow the post op diet instructions you are?given by Dr Jung? and text me daily at 5-6pm for an update.?If you have any issues or concerns or questions please communicate this to him via text.? The Celebrate shakes have all of the bariatric vitamins you need if you consume these shakes. If you are drinking other protein shakes, you will need to purchase the Celebrate multivitamins and calcium that are available in the hospital gift shop on the first floor of the main hospital.??Do not take anything without first discussing with Dr Jung. Please make sure you are consuming at least 40 ounces of fluids per day starting the?day AFTER your discharge from the hospital. Always drink 1-2 ml per minute using the 5ml?syringe. If you drink faster you may experience?bloating,?gas pain, burping, nausea or heartburn. In that case please slow down your pace and use the syringe to?understand better the?proper?pace and volume of drinking. Do not hesitate to contact the office with any questions at . The patient's medical history has been reviewed and they are considered low risk for post op DVT and therefore DVT prophylaxis is not considered necessary. Travel after surgery was reviewed. The patient has not disclosed any travel plans during the first 30 days after surgery and they have been advised that wit hin the first 30 days after surgery any bus, plane, train or car travel over 2 hours in duration is contraindicated due to the possibility of developing blood clots from immobility. Any travel, needs to include periods of ambulation of 10 minutes in duration every 2 hours.? The patient was instructed to discuss any plans for travel during this period with their bariatric surgeon. Assessment: Stable, status post laparoscopic sleeve gastrectomy
[2024-03-07 14:32] LABS: Hematocrit 38.4 % (37.0-47.0); Hemoglobin 12.2 g/dl (12.0-16.0)
[2024-03-07 14:40] LABS: Anion Gap 12 (12-20); Blood Urea Nitrogen 12 mg/dL (9-16); Calcium 8.9 mg/dL (8.4-10.2); Carbon Dioxide 22 mmol/L (22-29); Chloride 107 mmol/L (96-108); Creatinine Clr Calc Pharmacy 138.1; Estimated Glomerular Filt Rate > 60; Glucose Random 164 mg/dL (60-115); Potassium 3.7 mmol/L (3.3-5.1); Sodium 137 mmol/L (135-145)
--- NOTE | 2024-03-07 16:24 | PHA.MEDREC ---
Addendum entered by Jagdish Huertas 03/07/24 16:36: reviewed Original Note: Pharmacy Consult ? Medication Reconciliation Pharmacy reviewed med rec done by nursing Monday 03/05. Spoke with patient and she stated that she is not taking the Biotin 1mg tab or Multivitamin tablets anymore due to her not being able to swallow them that well and has not teken them since Friday 05/05. She confirmed she is not taking the Vitamin B1 tabs and states her Dr told her to take it until Monday 03/05 for her Surgery. She confirmed she has the Ondansentron 4mg disintegrating tabs, Pantoprazole 40mg and Sucralfate oral suspension at home for after the surgery.
[2024-03-07] MEDS: Acetaminophen 1,000 MG/100 ML PIGGYBACK 16.7 MG IV (18:12)
[2024-03-08] MEDS: Acetaminophen 1,000 MG/100 ML PIGGYBACK 16.7 MG IV ×2 (00:03→06:00)
[2024-03-08] MEDS: Lactated Ringers 1,000 ML 100 ML IVCONT (00:04)
[2024-03-08 03:15] VITALS: BP 130/64; PULSE 55; RESP 17; TEMP 36.5; O2SAT 93
[2024-03-08 05:59] LABS: MANUAL DIFF FLAG NO
[2024-03-08] MEDS: Pantoprazole Sodium 40 MG/10 ML VIAL IVPUSH (06:00)
[2024-03-08 06:04] LABS: Basophils Percent Auto 0.1 % (0-2); Eosinophils Percent Auto 0.1 % (0-4); Hemoglobin 12.2 g/dl (12.0-16.0); Imm Gran Abs Auto 0.05 X10*3/uL (0.00-0.03); Imm Gran Pct Auto 0.5 % (0.0-0.4); Lymphocytes Absolute Auto 1.4 X10*3/uL (1.2-4.9); Mean Corpuscular HGB Conc 31.3 g/dl (31.0-35.0); Mean Corpuscular Hemoglobin 24.6 pg (27.0-33.0); Mean Corpuscular Volume 78.6 fL (80.0-98.0); Mean Platelet Volume 10.8 fL (9.4-12.3); Monocytes Absolute Auto 0.6 X10*3/uL (0.1-1.2); Monocytes Percent Auto 5.4 % (2-11); Neutrophils Absolute Auto 8.6 x10*3/uL (2.0-8.3); Neutrophils Percent Auto 80.9 % (45-73); Platelet Count 162 X10*3/uL (160-400); Red Blood Count 4.96 X10*6/uL (4.20-5.50); Red Cell Distribution Width 15.1 % (11.0-16.0); White Blood Count 10.6 X10*3/uL (4.8-10.8)
[2024-03-08 06:24] LABS: Anion Gap 14 (12-20); Blood Urea Nitrogen 6 mg/dL (9-16); Calcium 9.1 mg/dL (8.4-10.2); Carbon Dioxide 20 mmol/L (22-29); Chloride 108 mmol/L (96-108); Creatinine Clr Calc Pharmacy 156.8; Estimated Glomerular Filt Rate > 60; Glucose Random 93 mg/dL (60-115); Potassium 3.9 mmol/L (3.3-5.1); Sodium 138 mmol/L (135-145)
[2024-03-08 07:36] VITALS: BP 129/61; PULSE 53; RESP 18; TEMP 36.5; O2SAT 95
--- NOTE | 2024-03-08 08:18 | HO.POSTANES ---
Post Anesthesia Evaluation Post Anesthesia Evaluation Date of Service: 03/08/24 Vital Signs: Vital Signs Temp Pulse Resp BP Pulse Ox O2 Del Method 03/08/24 07:36 97.7 F 53 18 129/61 95 Room Air 03/08/24 03:15 97.7 F 55 17 130/64 93 Room Air 03/07/24 23:53 98.0 F 53 17 112/59 L 93 Room Air Anesthesia: General Mental Status: Awake Pain Control: Satisfactory Nausea/Vomiting: None Hydration: Adequate Anesthesia-Related Issues: No Anes. Related Issues
--- NOTE | 2024-03-08 08:59 | MHC.CM.PN ---
PT REPORTS SHE LIVES WITH HER S/O WHO WAS AT BEDSIDE SHE IS INDEPENDENT WITH CARE WITH NO DME AND NO SERVICES SHE DECLINES TO COMPLETE A HCP PCP: HARLEY POWERS PT WILL DC HOME TODAY WITH NO SERVICES S/O TO TRANSPORT
== END 2024-03-08 09:36 | disposition home or self-care (01) | DRG 403 ==
LOC: HO.SSSA 13:46 → HO.S3 14:36
PROVIDERS: Nurse Practitioner; Physician Assistant Surgical; Admitting Provider Surgery; PCP Internal Medicine; Visit Provider Surgery
PROC: 0DB64Z3 Excision of Stomach, Percutaneous Endoscopic Approach, Vertical (ICD-10-PCS; CPT 43845; principal; 2024-03-07 10:10)
DX: E66.01 Morbid (severe) obesity due to excess calories (principal); E78.5 Hyperlipidemia, unspecified; K21.9 Gastro-esophageal reflux disease without esophagitis; M41.9 Scoliosis, unspecified; Z87.891 Personal history of nicotine dependence; Z68.38 Body mass index [BMI] 38.0-38.9, adult; Z79.899 Other long term (current) drug therapy
CPT/HCPCS: 43775; 43659; 36415; 80048; 81025; 85014; 85018; 85025; 86850; 86900; 86901; 88305; 88307; 88342; 94640; A4649; C9145; J0131; J0690; J1100; J1171; J1630; J2003; J2250; J2405; J2470; J2704; J2795; J3010; J7120

== ENCOUNTER → 2024-03-07 08:16 | Outpatient (BNV) | payer BC, SELFPAY | PROVIDERS: Admitting Provider Surgery; PCP Internal Medicine; Visit Provider Surgery | DX: E66.812 Obesity, class 2 (principal); Z68.38 Body mass index [BMI] 38.0-38.9, adult | CPT/HCPCS: 43659; 43775; 99024; 99499 ==

== ENCOUNTER 2024-03-14 10:52 | Outpatient (AMB) | payer BC, SELFPAY ==
--- NOTE | 2024-03-14 11:23 | MHC.OFFVISWM ---
VS Expanded 03/14/24 12:18 BP 114/61 Blood Pressure Location Rt brachial Blood Pressure Position Sitting Pulse 69 Pulse Source Pulse Oximeter Temp 97.4 F Temperature Source Temporal Artery Scan Pulse Oximetry 97 Oxygen Delivery Method Room Air Height 5 ft 5 in Weight 217 lb 9.6 oz BMI 36.2 Body Fat % 42.8 Body Fat Mass 93.0 Fat Free Mass 124.6 Visceral Fat Rating 10.0 Body Water % 41.0 Body Water Mass 89.2 Muscle Mass/Score 118.2 Basal Metabolic Rate/Score 1,753 Intake Visit Reasons: (OV) PO LSG 03/07/24 Allergies No Known Allergies Allergy (Verified 03/14/24 11:26) HPI Comments Details: Patient is a 33-year-old female who returns to the office today in follow-up. She is approximately 7 days post sleeve gastrectomy performed on 03/07/2024. She did develop some redness to the lateral 2 port sites yesterday. There may have been water underneath the dressing, she is not sure. She denies any significant pain or fever. She is tolerating 1 celebrate 4 in 1 shake with 2 scoops and 2 seeq shakes with 1 scoop each (22 gm protein per scoop). She has had approximately 60 oz of water and has moved her bowels. [facility] Medical History (Updated 03/13/24 @ 00:02 by Loyd Reyna) Needle phobia Back pain Degenerative disc disease, lumbar GERD (gastroesophageal reflux disease) Scoliosis Hyperlipidemia Surgical History (Updated 03/14/24 @ 11:27 by Yudi Kuhn CMA) S/P laparoscopic sleeve gastrectomy History of esophagogastroduodenoscopy (EGD) [place] teeth extracted Family History Family/Other No problems noted. Social History Household Members: Significant Other and Family Housing: House Are you a primary children's zoo caretaker to a significant other at home: No Do you presently have visiting nurse or other home services: No Alcohol intake: never Patient Tobacco Use Status: Former Tobacco user Tobacco use type: Cigarette Years Smoked: 10 e-Cigarette/Vaping Use: Former Use service: No Physical Exam Skin Other: Mild surrounding erythema and superficial purulence to the right to port site. Otherwise clean, dry, intact. Assessment & Plan Assessment & Plan (1) S/P laparoscopic sleeve gastrectomy: Code(s): Z98.84 - Bariatric surgery status Category: Surgical Plan: POD 7 s/p LSG on 03/07/[address] Jung Weight loss prior to surgery was 26.7 pounds or 10.5 % TBWL. Original weight on 12/02/2023 was 253 pounds and op weight was 226.3 pounds. Be sure to text Dr Jung exactly 1 week after surgery your weight from your home scale so he can adjust your meal plan. Continue meal plan until f/u daniel Esposito in 2 weeks May shower, no submersion in bath for another week Continue abdominal binder with activity and exercise for the next 2 weeks. Exercise prior to surgery was tried climber and may resume in 2-3 days No abdominal exercises for 6 weeks post operatively Will be emailed link to post op video for review Reminded of the pace of drinking, 2 mL per minute, 1 oz/15 min. Minimal reactionary erythema to the sutures of the lateral 2 ports sites. Recommendation is to shower daily, wash her abdomen with soap and water, apply scant bacitracin and a Band-Aid. Call with any questions or concerns or worsening erythema.
[2024-03-14 12:18] VITALS: BP 114/61; PULSE 69; TEMP 36.3; O2SAT 97; BMI 36.2
== END 2024-03-14 12:25 | disposition home or self-care (01) ==
PROVIDERS: PCP Internal Medicine; Visit Provider Physician Assistant Surgical
DX: Z98.84 Bariatric surgery status (principal)
CPT/HCPCS: 99024

== ENCOUNTER → 2024-03-14 10:52 | Outpatient (BNVA) | payer BC, SELFPAY | PROVIDERS: PCP Internal Medicine; Visit Provider Physician Assistant Surgical ==

== ENCOUNTER 2024-03-26 14:52 | Outpatient (AMB) | payer BC, SELFPAY ==
--- NOTE | 2024-03-26 15:00 | A.OFFPC_ITS ---
Vital Signs 03/26/24 15:10 Height 5 ft 5 in Weight 216 lb 2 oz BMI 36.0 BP 106/62 Blood Pressure Location Rt brachial Position Sitting Pulse 68 Pulse Source Pulse Oximeter Pulse Oximetry (%) 99 Oxygen Delivery Method Room Air Intake Visit Reasons: [facility] Note: New patient visit Campus Receptionist Required: No Allergies No Known Allergies Allergy (Verified 03/26/24 15:13) Dental Screening Dental Screen Date: 03/26/24 Did you have a dental visit in the last 12 months?: Yes Did you have a dental problem in the last 6 months where you did not have access to dental care?: No Was dental information given to patient?: No HPI HPI Comments History of Present Illness Details 31 year old female with a past medical h istory of pilonidal/gluteal cysts, chronic low back pain, acne presenting for follow up Obesity s/p gastric sleeve. Follows with weight management at [facility] Low back pain: Pre surgery was having daily, difficult to get out of bed. There has been some interval improvement following surgery Stretches in the morning. Prior xray with mild degenerative changes, mild scoliosis. Acne: Sees dermatology. Recurrent pilonidal, intergluteal cyst. Historically needed abx every few months. No recent issue Tdap 05/2020 Pap 06/2019-she will call ROS CONSTITUTIONAL: Denies weight loss, fever and chills. HEENT: Denies changes in vision and hearing. RESPIRATORY: Denies SOB and cough. CV: Denies palpitations and CP GI: Denies abdominal pain, nausea, vomiting and diarrhea. : Denies dysuria and urinary frequency. MSK: Denies new myalgia and joint pain. SKIN: Denies rash and pruritus. NEUROLOGICAL: Denies headache PSYCHIATRIC: Denies recent changes in mood. PHYSICAL EXAM: GENERAL: Alert and oriented x 3. NAD EYES: EOMI. Anicteric. HENT: Moist mucous membranes. No scleral icterus. No cervical lymphadenopathy. LUNGS: Clear to auscultation bilaterally. CARDIOVASCULAR: Regular rate and rhythm. No murmur. No JVD. ABDOMEN: Soft, non-tender +bs EXTREMITIES: No edema. Non-tender. SKIN: Healing laparoscopic lesions NEUROLOGIC: No focal neurological deficits. CN II-XII grossly intact PSYCHIATRIC: Cooperative. Appropriate mood and affect [facility] Medical History (Updated 03/26/24 @ 16:14 by Reshma Patel MD) Needle phobia Back pain Degenerative disc disease, lumbar GERD (gastroesophageal reflux disease) Scoliosis Hyperlipidemia Surgical History S/P laparoscopic sleeve gastrectomy History of esophagogastroduodenoscopy (EGD) [place] teeth extracted Family History (Updated 03/26/24 @ 15:12 by Rula Park CMA) Family/Other No problems noted. 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 1. Little interest or pleasure in doing things: not at all 2. Feeling down, depressed, or hopeless: not at all 3. Trouble falling or staying asleep, or sleeping too much: not at all 4. Feeling tired or having little energy: not at all 5. Poor appetite or overeating: not at all 6. Feeling bad about yourself - or that you are a failure or have let yourself or your family down: not at all 7. Trouble concentrating on things, such as reading the newspaper or watching television: not at all 8. Moving or speaking so slowly that other people could have noticed. Or the opposite - being so fidgety or restless that you have been moving around a lot more than usual: not at all 9. Thoughts that you would be better off or of hurting yourself in some way: not at all Total score: 0 Depression Screening Interpretation: Negative Depression Screening Done: Yes 67705 - PHQ-9 Billing: Yes Source: Developed by Joan AriasW. Bhavik, Kev Mcgarry and colleagues, with an educational juan from [employer]. Thrive Questionnaire Date Thrive assessed: 03/19/24 I am a: Patient What is your living situation today?: I have a steady place to live Within the past 12 months, did the food you bought not last and you didn't have the money to get more?: Never true Within the past 12 months, did you worry whether your food would run out before you got money to buy more?: Never true Do you have trouble paying for medicines?: No Do you have trouble getting transportation to medical appointments?: No Do you have trouble paying your heating and electricity bill?: No Do you have trouble taking care of your child, family member or friend?: No Do you have trouble with day-to-day activities such as bathing, preparing meals, shopping, managing finances, etc.?: No Are you currently unemployed and looking for a job?: No Are you interested in more education?: No Please select the resources that you would like help with: None Currently or been in a relationship where the following occur: No concerns reported THRIVE Score: 0 AUDIT C Alcohol Use Questionnaire (AUDIT-C) 1. How often do you have a drink containing alcohol?: Never 3. How often do you have six or more drinks on one occasion?: Never Total Score: 0 ASHLEY-7 AMB Questionnaire ASHLEY-7 Date ASHLEY - 7 assessed: 04/25/24 Feeling nervous, anxious, or on edge: 1 = Several days Not being able to stop or control worryin = Not at all Worrying too much about different things: 1 = Several days Trouble relaxin = Several days Being so restless that it is hard to sit still: 0 = Not at all Becoming easily annoyed or irritable: 0 = Not at all Feeling afraid as if something awful might happen: 0 = Not at all Total ASHLEY-7 score (0-4 normal; 5-9 mild; 10-14 moderate; 15-21 severe): 3 Source: Developed by Drs. Jeremias Montesinos, Joan Gutierres, Kev Mcgarry and colleagues, with an educational juan from [employer]. ASHLEY-7 Assessment Billing ASHLEY-7 Assessment Tool: ASHLEY-7 Assessment 31683 Physical exam (Primary Care) Vital Signs: Last Vital Signs Pulse 68 03/26/24 15:10 BP 106/62 03/26/24 15:10 Pulse Ox 99 03/26/24 15:10 Oxygen Delivery Method Room Air 03/26/24 15:10 BMI result Body Mass Index 36.0 Tobacco/Smoking Status: Tobacco use Status Patient Tobacco Use Status Former Tobacco user 03/26/24 15:11 Tobacco use type Cigarette 03/26/24 15:11 e-Cigarette/Vaping Use Former Use 03/26/24 15:11 PHQ-9: PHQ-9 Score PHQ-9: Total score 0 03/26/24 15:03 Depression Screening Interpretation: Negative Thrive Assessment: Date of Thrive Assessment Date Thrive assessed 03/19/24 03/26/24 15:03 Currently or been in a relationship where the following occur: No concerns reported Coding Level of Care Code Est Pt Level 4 (94883) Diagnoses Obesity, unspecified class, unspecified obesity type, unspecified whether serious comorbidity present E66.9 Obesity type: unspecified obesity type Obesity classification: unspecified obesity classification Serious obesity comorbidity presence: unspecified whether serious comorbidity present Degeneration of intervertebral disc of lumbar region, unspecified whether pain present M51.369 Disc-related pain type: unspecified whether pain present Additional Codes ASHLEY-7 Assessment Billing - ASHLEY-7 Assessment Tool: ASHLEY-7 Assessment 74010 ([id number]) PHQ-9 - 27071 - PHQ-9 Billing: Yes ([id number]) Assessment & Plan Assessment & Plan (1) Obesity: Code(s): E66.9 - Obesity, unspecified Category: Medical Qualifiers: Obesity type: unspecified obesity type Obesity classification: unspecified obesity classification Serious obesity comorbidity presence: unspecified whether serious comorbidity present Qualified Code(s): E66.9 - Obesity, unspecified Plan: s/p gastric sleeve. doing well. congratulated on weight loss. (2) Degenerative disc disease, lumbar: Code(s): M51.369 - Other intervertebral disc degeneration, lumbar region without mention of lumbar back pain or lower extremity pain Category: Medical Qualifiers: Disc-related pain type: unspecified whether pain present Qualified Code(s): M51.369 - Other intervertebral disc degeneration, lumbar region without mention of lumbar back pain or lower extremity pain Plan: Some interval improvement following weight loss.
[2024-03-26 15:10] VITALS: BP 106/62; PULSE 68; O2SAT 99; BMI 36.0
== END 2024-03-26 15:38 | disposition home or self-care (01) ==
PROVIDERS: PCP Internal Medicine; Visit Provider Internal Medicine
DX: M51.369 Other intervertebral disc degeneration, lumbar region without mention of lumbar back pain or lower extremity pain (principal); E66.9 Obesity, unspecified; Z68.36 Body mass index [BMI] 36.0-36.9, adult

== ENCOUNTER → 2024-03-26 14:52 | Outpatient (BNVA) | payer BC, SELFPAY | PROVIDERS: PCP Internal Medicine; Visit Provider Internal Medicine | DX: E66.9 Obesity, unspecified (principal); Z68.36 Body mass index [BMI] 36.0-36.9, adult; M51.369 Other intervertebral disc degeneration, lumbar region without mention of lumbar back pain or lower extremity pain; Z98.84 Bariatric surgery status | CPT/HCPCS: 96127 ==

== ENCOUNTER 2024-04-02 08:51 | Outpatient (AMB) | payer BC, SELFPAY ==
--- NOTE | 2024-04-02 09:09 | A.OFFVIS_ITS ---
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 Presents for 1 month post op visit. Weight today is 207.2 pounds, with a BMI of 34.4. There has been a 45.8 pound weight loss,(initial weight 253 pounds) since starting the program on 12/02/2023 reflecting a 18.1 % total body weight loss and a weight loss of 19.1 pounds since surgery (operative weight 226.3 pounds) reflecting a 8.4 % TBWL since surgery. No complaints of nausea, emesis, abdominal pain or reflux. Reports infrequent but normal bowel movements every 4- 5 days and uses stool softeners regularly. Taking 15 mL MOM and 1 TBSP metamucil daily She states she had a stall last week. was supposed to be doing premier protein 4 oz w 4 oz almond milk, 8-10, 11-1, whole bottle 2-4, pure protein bar 5-8 Present meal plan includes: Premier protein rtd, 7-, 11-2 1 seeq shakes with 1 scoop each (22 gm protein per scoop) in 16 oz water. 4-6 Drinking 70 oz water ? Exercise routine includes: tread climber, 350-400 lior 6 days per week [facility] Medical History (Updated 04/02/24 @ 09:34 by RODOLFO Collins) Needle phobia Back pain Degenerative disc disease, lumbar GERD (gastroesophageal reflux disease) Scoliosis Hyperlipidemia Surgical History S/P laparoscopic sleeve gastrectomy History of esophagogastroduodenoscopy (EGD) [place] teeth extracted Family History (Updated 03/26/24 @ 15:12 by Rula Park CMA) Family/Other No problems noted. 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 This was the reason for her lack of weight loss over the last 1 week. We discussed this and she will follow the meal plan as listed below: premier protein 4 oz w 4 oz almond milk, 8-10, 11-1, Or (seeq 1 scoop in 16 oz of water over same time) whole bottle 2-4, pure protein bar 5-8 Continue exercise with a goal of 400 calories per day (2) Constipation: Code(s): K59.00 - Constipation, unspecified Category: Medical Plan: Add senna and Dulcolax Medications: New bisacodyl (Dulcolax (bisacodyl)) 10 mg NH DAILY PRN 12 ea 0RF constipation sennosides (senna) 17.2 mg (2 x 8.6 mg) PO BEDTIME PRN 90 tabs 0RF constipation
[2024-04-02 09:17] VITALS: BP 122/58; PULSE 62; TEMP 36.4; O2SAT 96; BMI 34.5
--- OUTSIDE RECORDS SUMMARY | 2024-04-04 13:35 | XMS_ITS ---
Author Name [facility] Organization Unknown History of Medication Use Medication Directions Dispensed Refills Start Date End Date [facility] spironolactone 100 mg tablet TAKE 1 TABLET BY MOUTH DAILY TAKE 1 TABLET BY MOUTH DAILY 10/16/2021 completed Aurovela Fe 1-20 (28) 1 mg-20 mcg (21)/75 mg (7) tablet TAKE 1 TABLET BY MOUTH EVERY DAY TAKE 1 TABLET BY MOUTH EVERY DAY 10/16/2021 completed
== END 2024-04-02 09:39 | disposition home or self-care (01) ==
PROVIDERS: PCP Internal Medicine; Visit Provider Physician Assistant Surgical
DX: Z98.84 Bariatric surgery status (principal); K59.00 Constipation, unspecified
CPT/HCPCS: 99024

== ENCOUNTER 2024-05-11 09:40 | Outpatient (AMB) | payer OTHER, SELFPAY ==
[2024-05-11 08:15] VITALS: BMI 32.0
--- NOTE | 2024-05-11 08:15 | A.OFFVIS_ITS ---
VS Expanded 05/11/24 08:15 Height 5 ft 5 in Weight 192 lb 2 oz BMI 32.0 Body Fat % 43.5 Fat Free Mass 108.6 Visceral Fat Rating 10 Body Water % 40.2 Muscle Mass/Score 102.5 Basal Metabolic Rate/Score 1,466 Intake Visit Reasons: (TV) PO LSG 03/07/24 Wrapper Sizer Required: No Allergies No Known Allergies Allergy (Verified 03/26/24 15:13) Medication List - Last Reconciled 05/11/24 by RODOLFO Collins bisacodyl (Dulcolax (bisacodyl)) 10 mg SD DAILY PRN multivitamin 1 tab PO DAILY pantoprazole 40 mg PO DAILY sennosides (senna) 17.2 mg (2 x 8.6 mg) PO BEDTIME PRN sucralfate 10 mL PO BID HPI Comments Details: This?a?33?yo female who is s/p LSG without hiatal hernia repair on?03/07/2024. Presents for 2 month post op visit. Weight today is 192.2 pounds, with a BMI of 34.4. There has been a 60.8 pound weight loss,(initial weight 253 pounds) since starting the program on 12/02/2023 reflecting a 24 % total body weight loss and a weight loss of 34.1 pounds since surgery (operative weight 226.3 pounds) reflecting a 15 % TBWL since surgery. No complaints of nausea, emesis, abdominal pain or reflux. Reports infrequent but normal bowel movements every 2- 3 days and uses stool softeners regularly. Taking 15 mL MOM and 1 TBSP metamucil daily She states she has been following the meal plan. Present meal plan includes: premier protein 4 oz w 4 oz almond milk, 8-10, 11-1 pure protein bar 2-4 premier protein rtd 5-8 Or (seeq 1 scoop (22 gm pro) in 16 oz of water over same time) or 4 forks protein and 4 forks veg Drinking 40 oz water ? Exercise routine includes: tread climber, 30-40 min, 300-350 lior 7 days per week [facility] Medical History (Updated 04/02/24 @ 09:34 by RODOLFO Collins) Needle phobia Back pain Degenerative disc disease, lumbar GERD (gastroesophageal reflux disease) Scoliosis Hyperlipidemia Surgical History S/P laparoscopic sleeve gastrectomy History of esophagogastroduodenoscopy (EGD) [place] teeth extracted Family History (Updated 03/26/24 @ 15:12 by Rula Park CMA) Family/Other No problems noted. 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 Current occupational exposures/hazards: No Cognitive needs: No Hearing needs: No Vision needs: No Telehealth Telehealth Telehealth Platform: Telephone Location of provider rendering services: practice address Location of patient: address on file Patient Identification confirmed using: Name, : Yes Telehealth method: voice only Patient verbally consented to treatment: Yes Patient verbally consented to billing insurance company: Yes Patient informed of any privacy concerns related to visit: Yes Minutes spent on Phone/Video with Pt.: 20 Assessment & Plan Assessment & Plan (1) S/P laparoscopic sleeve gastrectomy: Code(s): Z98.84 - Bariatric surgery status Category: Surgical Plan: Overall doing well. We will try to focus on 350 calories or more per day using her treadmill climber, she will go back to the gym and begin to incorporate weight training We will monitor whether she is doing more frequently the ready to drink shake,seeq, or food at night. Encouraged to have either the food or the seeq protein shake Continue to check weights weekly and text weekly Follow-up in the office 1 month.
== END 2024-05-11 09:53 | disposition home or self-care (01) ==
LOC: HO.HBS 09:40
PROVIDERS: PCP Internal Medicine; Visit Provider Physician Assistant Surgical
DX: Z98.84 Bariatric surgery status (principal)
CPT/HCPCS: 99024

== ENCOUNTER → 2024-05-11 09:40 | Outpatient (BNVA) | payer OTHER, SELFPAY | PROVIDERS: PCP Internal Medicine; Visit Provider Physician Assistant Surgical ==

== ENCOUNTER 2024-06-08 10:12 | Outpatient (AMB) | payer OTHER, SELFPAY ==
--- NOTE | 2024-06-08 10:23 | A.OFFPC_ITS ---
Vital Signs 06/08/24 10:27 Height 5 ft 5 in Weight 189 lb BMI 31.4 BP 102/72 Blood Pressure Location Lt brachial Position Sitting Respiration 14 Pulse 65 Pulse Source Pulse Oximeter Temp 98.2 F Temp Source Oral Pulse Oximetry (%) 99 Oxygen Delivery Method Room Air Intake Visit Reasons: ED f/u from [facility] Intake Note: Emergency, fever yesterday, congestion, cough. Son may have had flu last week. Entry Level Lab Technician Required: No Allergies No Known Allergies Allergy (Verified 06/08/24 10:24) Medication List - Last Reconciled 06/10/24 by Reshma Patel MD bisacodyl (Dulcolax (bisacodyl)) 10 mg MS DAILY PRN multivitamin 1 tab PO DAILY sennosides (senna) 17.2 mg (2 x 8.6 mg) PO BEDTIME PRN [vitamin d3 and calcium 2 times a [id number] calcium, 1000 vitamin d3 ] Dental Screening Dental Screen Date: 03/26/24 HPI HPI Comments History of Present Illness Details 33 year old female with a past medical h istory of pilonidal/gluteal cysts, chronic low back pain, acne presenting for ER follow up Recently evaluated in [facility] ER for LLQ. She had CT abdomen showing multiple fibroids and likely incidentally a hepatic lesion that warrants MRI follow up for further evaluation. She has an appointment with driver material handler to follow up on the fibroids and LLQ pain. The LLQ pain started when she fell on her knee and then back on her buttock hyperextending the hip area. The area hurts more with exercise Obesity s/p gastric sleeve. [place] [facility] pain: Pre surgery was having daily, difficult to get out of bed. There has been some interval improvement following surgery Stretches in the morning. Prior xray with mild degenerative changes, mild scoliosis. Acne: Sees dermatology. Recurrent pilonidal, intergluteal cyst. Historically needed abx every few months. No recent issue Tdap 05/2020 Pap 06/2019-she will call [facility] CONSTITUTIONAL: Denies weight loss, fever and chills. HEENT: Denies changes in vision and hearing. RESPIRATORY: Denies SOB and cough. CV: Denies palpitations and CP GI: Denies abdominal pain, nausea, vomiting and diarrhea. : Denies dysuria and urinary frequency. MSK: Denies new myalgia and joint pain. SKIN: Denies rash and pruritus. NEUROLOGICAL: Denies headache PSYCHIATRIC: Denies recent changes in mood. PHYSICAL EXAM: GENERAL: Alert and oriented x 3. NAD EYES: EOMI. Anicteric. HENT: Moist mucous membranes. No scleral icterus. No cervical lymphadenopathy. LUNGS: Clear to auscultation bilaterally. CARDIOVASCULAR: Regular rate and rhythm. No murmur. No JVD. ABDOMEN: Soft, non-tender +bs EXTREMITIES: No edema. Non-tender. SKIN: Healing laparoscopic lesions NEUROLOGIC: No focal neurological deficits. CN II-XII grossly intact PSYCHIATRIC: Cooperative. Appropriate mood and affect [facility] Medical History Needle phobia Back pain Degenerative disc disease, lumbar GERD (gastroesophageal reflux disease) Scoliosis Hyperlipidemia Surgical History S/P laparoscopic sleeve gastrectomy History of esophagogastroduodenoscopy (EGD) [place] teeth extracted Family History Family/Other No problems noted. 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 1. Little interest or pleasure in doing things: not at all 2. Feeling down, depressed, or hopeless: not at all 3. Trouble falling or staying asleep, or sleeping too much: not at all 4. Feeling tired or having little energy: not at all 5. Poor appetite or overeating: not at all 6. Feeling bad about yourself - or that you are a failure or have let yourself or your family down: not at all 7. Trouble concentrating on things, such as reading the newspaper or watching television: not at all 8. Moving or speaking so slowly that other people could have noticed. Or the opposite - being so fidgety or restless that you have been moving around a lot more than usual: not at all 9. Thoughts that you would be better off or of hurting yourself in some way: not at all Total score: 0 Depression Screening Interpretation: Negative Depression Screening Done: Yes 35402 - PHQ-9 Billing: Yes Source: Developed by Drs. Jeremias Montesinos, Joan Gutierres, Kev Mcgarry and colleagues, with an educational juan from [employer]. Thrive Questionnaire Date Thrive assessed: 06/05/24 I am a: Patient What is your living situation today?: I have a steady place to live Within the past 12 months, did the food you bought not last and you didn't have the money to get more?: Never true Within the past 12 months, did you worry whether your food would run out before you got money to buy more?: Never true Do you have trouble paying for medicines?: No Do you have trouble getting transportation to medical appointments?: No Do you have trouble paying your heating and electricity bill?: No Do you have trouble taking care of your child, family member or friend?: No Do you have trouble with day-to-day activities such as bathing, preparing meals, shopping, managing finances, etc.?: No Are you currently unemployed and looking for a job?: No Are you interested in more education?: No Please select the resources that you would like help with: None Currently or been in a relationship where the following occur: No concerns reported THRIVE Score: 0 AUDIT C Alcohol Use Questionnaire (AUDIT-C) 1. How often do you have a drink containing alcohol?: Never Total Score: 0 ASHLEY-7 AMB Questionnaire ASHLEY-7 Date ASHLEY - 7 assessed: 04/25/24 Feeling nervous, anxious, or on edge: 0 = Not at all Not being able to stop or control worryin = Not at all Worrying too much about different things: 0 = Not at all Trouble relaxin = Not at all Being so restless that it is hard to sit still: 0 = Not at all Becoming easily annoyed or irritable: 0 = Not at all Feeling afraid as if something awful might happen: 0 = Not at all Total ASHLEY-7 score (0-4 normal; 5-9 mild; 10-14 moderate; 15-21 severe): 0 Source: Developed by Drs. Jeremias Montesinos, Joan Gutierres, Kev Mcgarry and colleagues, with an educational juan from [employer]. Physical exam (Primary Care) Vital Signs: Last Vital Signs Temp 98.2 F 06/08/24 10:27 Pulse 65 06/08/24 10:27 Resp 14 06/08/24 10:27 BP 102/72 06/08/24 10:27 Pulse Ox 99 06/08/24 10:27 Oxygen Delivery Method Room Air 06/08/24 10:27 BMI result Body Mass Index 31.4 Tobacco/Smoking Status: Tobacco use Status Patient Tobacco Use Status Former Tobacco user 06/08/24 10:29 Tobacco use type Cigarette 06/08/24 10:29 e-Cigarette/Vaping Use Former Use 06/08/24 10:29 PHQ-9: PHQ-9 Score PHQ-9: Total score 0 06/10/24 12:32 Depression Screening Interpretation: Negative Thrive Assessment: Date of Thrive Assessment Date Thrive assessed 06/05/24 06/08/24 10:29 Currently or been in a relationship where the following occur: No concerns reported Coding Level of Care Code Est Pt Level 4 (57675) Diagnoses Liver mass R16.0 LLQ pain R10.32 Additional Codes PHQ-9 - 79639 - PHQ-9 Billing: Yes ([id number]) Assessment & Plan Assessment & Plan (1) Liver mass: Code(s): R16.0 - Hepatomegaly, not elsewhere classified Category: Medical Plan: MRI ordered. (2) LLQ pain: Code(s): R10.32 - Left lower quadrant pain Category: Medical Plan: Likely musculoskeletal however fibroids might be the cause or contributing factor Orders: Orders MR abdomen wo/w con 06/08/24 R16.0 - Hepatomegaly, not elsewhere classified
[2024-06-08 10:27] VITALS: BP 102/72; PULSE 65; RESP 14; TEMP 36.8; O2SAT 99; BMI 31.4
--- OUTSIDE RECORDS SUMMARY | 2024-06-08 11:03 | XMS_ITS | Encounter Summary ---
Author Organization [facility] Address [address] [place] [address] Care Team Providers Care Patent Leather Sorter Name Role Phone Unavailable Primary Care Provider Unavailabl e Encounter Details Date Type Department Care Team Description 06/10/2020 Records Encounter HIM OFFICE [address] [place] [address] Provider, Not In System Social History Tobacco Use Types Packs/Day Years Used Date Smoking Tobacco: Never Assessed Sex and Gender Information Value Date Recorded Sex Assigned at Female 02/18/2020 1:23 PM EDT Gender Identity Not on file Sexual Orientation Not on file documented as of this encounter Plan of Treatment Not on file documented as of this encounter Visit Diagnoses Not on filedocumented in this encounter
--- OUTSIDE RECORDS SUMMARY | 2024-06-08 11:03 | XMS_ITS | Clinical Summary ---
Author Organization [facility] Address [address] [place] [id number] Care Team Providers Care Nurse Head Name Role Phone Unavailable Primary Care Provider Unavailabl e Allergies No known active allergies Medications Medication Sig Dispensed Refills Start Date End Date Status Vit-Fe Fumarate-FA ( PLUS) 27-1 MG TABS tablet Take 1 tablet by mouth every morning after breakfast. 0 Active Active Problems Problem Noted Date Diagnosed Date Vaginal delivery 06/28/2020 Preeclampsia, third trimester 06/26/2020 Encounter for elective induction of labor 2020 Social History Tobacco Use Types Packs/Day Years Used Date Smoking Tobacco: Never Smokeless Tobacco: Never Alcohol Use Standard Drinks/Week Comments No 0 (1 standard drink = 0.6 oz pur e alcohol) Sex and Gender Information Value Date Recorded Sex Assigned at Female 02/18/2020 1:23 PM EDT Gender Identity Not on file Sexual Orientation Not on file Last Filed Vital Signs Vital Sign Reading Time Taken Comments Blood Pressure 101/62 06/29/2020 8:16 AM EST Pulse 64 06/29/2020 8:16 AM EST Temperature 36.4 ??C (97.5 ??F) 06/29/2020 8:16 AM ES T Respiratory Rate 18 06/29/2020 8:16 AM EST Oxygen Saturation 97% 06/29/2020 8:16 AM EST Inhaled Oxygen Concentration - - Weight 127 kg (280 lb) 06/26/2020 8:00 PM EST Height 162.6 cm (5' 4 ) 06/26/2020 8:00 PM EST Body Mass Index 48.06 06/26/2020 8:00 PM EST Plan of Treatment Health Maintenance Due Date Last Done Comments Hepatitis B Vaccines (1 of 3 - 3-dose series) 1988 Hepatitis C Screening 1988 COVID-19 Vaccine (#1) 04/19/1989 Depression Screening 2000 BMI Counseling 2006 Preventative Health Evaluation 2006 DTap / Tdap / Td (1 - Tdap) 10/19/2007 Cervical Cancer Screening (P ap Smear) 07/18/2022 07/19/2019 Influenza Vaccine (#1) 2023 Pneumococcal Vaccine Aged Out No long er eligible based on patient's age to complete this topic RSV Ped < 20 months Aged Out No longe r eligible based on patient's age to complete this topic Advance Directives For more information, please contact: [phone] Latest Code Status on File Code Status Date Activated Date Inactivated Comments Full Code 06/26/2020 8:33 PM 06/29/2020 8:15 PM This co de status was ascertained in the following way: discussion with patient .
--- OUTSIDE RECORDS SUMMARY | 2024-06-08 11:03 | XMS_ITS | Clinical Summary ---
Author Organization [facility] it Address [address] [place] [address] Care Team Providers Care Dba Developer Name Role Phone Marcy Jackson MD Primary Care Prov ider Allergies No known active allergies Medications norethindrone-et hinyl estradiol (Aurovela Fe 1-20, 28,) 1 mg-20 mcg (21)/75 mg (7) per tablet 11/18/2020 Active spironolactone (ALDACTONE) 100 mg tablet Take 1 tablet by mouth daily for 360 days. 12/17/2020 Active Active Problems Problem Noted Date Diagnosed Date Scoliosis 05/14/2024 Vaginal delivery 06/28/2020 Preeclampsia, third trimester 06/26/2020 Sprain of ligament of lumbosacral joint 09/07/19 14 Overview (05/14/2024): IMO update Sprain of sacroiliac ligament 09/06/2013 Pilonidal sinus with abscess 04/16/2011 Surgical History Surgery Date Site/Laterality Comments OTHER SURGICAL HISTORY PROCEDURE: DENIES PREVIOUS SURGERY Medical History Medical History Date Comments Scoliosis DX:Scoliosis Family History Medical History Relation Name Comments Alcohol/Drug Father Alcohol/Drug Maternal Grandfather Alcohol/Drug Maternal Grandmother Allergies Maternal Grandmother Depression Maternal Grandmother Allergies Mother Depression Mother Hyperlipidemia Mother Hypertension Mother Alcohol/Drug Paternal Grandfather Alcohol/Drug Paternal Grandmother Relation Name Status Comments Brother (Age 14) auto accid ent Father Alive Maternal Grandfather Maternal Grandmother Alive Mother Alive Paternal Grandfather Alive Paternal Grandmother Alive Social History Tobacco Use Types Packs/Day Years Used Date Smoking Tobacco: Former Cigarettes Q uit: 08/25/2019 Smokeless Tobacco: Never Alcohol Use Standard Drinks/Week Comments No 0 (1 standard drink = 0.6 oz pur e alcohol) Comments Unknown Sex and Gender Information Value Date Recorded Sex Assigned at Not on file Legal Sex Female 7:54 PM EST Gender Identity Not on file Sexual Orientation Not on file Obstetrics History Plan of Treatment Health Maintenance Due Date Last Done Comments DTaP,Tdap,and Td Vaccines (1 - Tdap) 10/19/2007 Hepatitis B Vaccines (1 of 3 - 19+ 3-dose series) 10/19/2007 Cholesterol Screening (Lipid Panel) 03/27/2022 Depression Screening 03/27/2022 HIV Screening 03/27/2022 Hepatitis C Screening 03/27/2022 Social Influencers of Health Screening 03/27/2022 Hypertension/CHF/CAD Annual BMP Blood Test 04/23/2022 06/27/2020, 06/26/2020 Cervical Cancer Screening: P ap Smear 07/18/2022 07/19/2019 COVID-19 Vaccine ( - 2023-2 5 season) 2023 Influenza Vaccine (#1) 2023 HIB Vaccines Aged Out No longer eligi ble based on patient's age to complete this topic HPV Vaccines Aged Out No longer eligi ble based on patient's age to complete this topic Hepatitis A Vaccines Aged Out No long er eligible based on patient's age to complete this topic IPV Vaccines Aged Out No longer eligi ble based on patient's age to complete this topic MMR Vaccines Aged Out No longer eligi ble based on patient's age to complete this topic Meningococcal ACWY Vaccine Aged Out N o longer eligible based on patient's age to complete this topic Meningococcal B Vacine Aged Out No lo nger eligible based on patient's age to complete this topic Pneumococcal Vaccine: Pediatrics (0 to 5 Years) and At-Risk Patients (6 to 64 Years) Aged Out No longer eligible b ased on patient's age to complete this topic RSV Immunization Patients Under 20 months Aged Out No longer eligible b ased on patient's age to complete this topic Varicella Vaccines Aged Out No longer eligible based on patient's age to complete this topic Procedures Procedure Name Priority Date/Time Associated Diagnosis Comments PAP SMEAR Routine 07/19/2019 12:00 AM EDT from Last 3 Months or Most Recently Relevant to Health Maintenance Results * Pap smear (07/19/2019 12:00 AM EDT) Case Results Patient Name: TATA MANZO MR#: [id number] Collected Date: 07/19/2019 Reported Date: 07/23/2019 Specimen #[id number] Final Diagnosis Satisfactory for evaluation. ??Endocervical transformation zone component absent. Negative for Intraepithelial Lesion or Malignancy. Predominance of Coccobacilli consistent with shift in vaginal waldemar. ?? Clinical Diagnosis Z01.419 Z11.3 Note: This Pap test could not be imaged utilizing the Imaging System and required manual review. Source: A: ThinPrep-Cervical- Screen B: HPV Mandatory Electronically Signed Out By [facility]) Addenda/Procedures HPV DNA PROBE, MANDATORY Ordered: ?? 07/20/2019 Reported: ??07/21/2019 HPV HIGH RISK: POSITIVE <<NOTE>>One or more of the following High Risk human papillomavirus (HPV) types has been detected: 16,18,31,33,35,39, 45,51,52,56,58,59, 66,and 68. ??The Aptima HPV nucleic acid amplification assay manufactured by [employer] and performed on the eduClipper System was used for the qualitative detection of E6/E7 viral messenger RNA (mRNA) from 14 high-risk types of (HPV) in cervical specimens. The Aptima HPV assay does not discriminate between the 14 high-risk types. Results should be interpreted in conjunction with other laboratory and clinical data. <<NOTE>> Clinical guidelines for follow up of patients screened with HPV testing can be found in the following reference: Monica WK, et al. Use of primary high risk human papillomavirus testing for cervical cancer screening: Interim clinical guidance, Gynecol Oncol. 2015 b,136(2):178-82. Procedure/Addend um Electronically Signed Out By System Interface Note: The Pap test is a screening test with an inherent false negative rate. Automated prescreening of all liquid based specimens is performed by the Currently Imaging System unless otherwise stated. Test Performed by: [address] ??[id number] Harpreet Easley Jr., M.D., [facility], Director HISTORICAL TESTING LAB RESULTING AGENCY Comment:MR#: [id number] 07/19/2019 us Tea Diaz MD LAB CYTOLOGY ORDERABLES Final Result HISTORICAL TESTING LAB RESULTING AGENCY from Last 3 Months or Most Recently Relevant to Health Maintenance Care Teams Dba Developer Relationship Specialty Start Date End Date Marcy Jackson MD PCP - General 12/10/10
== END 2024-06-08 12:21 | disposition home or self-care (01) ==
PROVIDERS: PCP Internal Medicine; Visit Provider Internal Medicine
DX: R16.0 Hepatomegaly, not elsewhere classified (principal); R10.32 Left lower quadrant pain

== ENCOUNTER → 2024-06-08 10:12 | Outpatient (BNVA) | payer OTHER, SELFPAY | PROVIDERS: PCP Internal Medicine; Visit Provider Internal Medicine | DX: R16.0 Hepatomegaly, not elsewhere classified (principal); R10.32 Left lower quadrant pain; E66.9 Obesity, unspecified; Z98.84 Bariatric surgery status | CPT/HCPCS: 96127 ==

== ENCOUNTER 2024-06-22 09:00 | Outpatient (AMB) | payer OTHER, SELFPAY ==
[2024-06-22 08:24] VITALS: BMI 29.5
--- NOTE | 2024-06-22 08:24 | MHC.OFFVISWM ---
VS Expanded 06/22/24 08:24 Height 5 ft 5 in Weight 177 lb 6 oz BMI 29.5 Body Fat % 41.4 Body Fat Mass 73.4 Fat Free Mass 04.2 Visceral Fat Rating 9 Body Water % 41.8 Muscle Mass/Score 55.5 Basal Metabolic Rate/Score 1,398 Intake Visit Reasons: (TV) PO LSG 03/07/24 Allergies No Known Allergies Allergy (Verified 06/08/24 10:24) HPI Comments Details: This?a?33?yo female who is s/p LSG without hiatal hernia repair on?03/07/2024. Presents for 3 month post op visit. Weight today is 177.6 pounds, with a BMI of 29.5. There has been a 75.4 pound weight loss,(initial weight 253 pounds) since starting the program on 12/02/2023 reflecting a 29.8 % total body weight loss and a weight loss of 48.7 pounds since surgery (operative weight 226.3 pounds) reflecting a 21.5 % TBWL since surgery. No complaints of nausea, emesis, abdominal pain or reflux. Reports infrequent but normal bowel movements every 2-3 days and uses stool softeners regularly. Taking 15 mL MOM and 1 TBSP metamucil daily She states she feels great. Present meal plan includes: premier protein 4 oz w 4 oz almond milk, 8-10, 11-1 pure protein bar 2-4 premier protein rtd 5-8 Or (seeq 1 scoop (22 gm pro) in 16 oz of water over same time) or 4 forks protein and 4 forks veg Drinking 40 oz water ? Exercise routine includes: tread climber, 40 min, 300-400 lior 7 days per week [facility] Medical History Needle phobia Back pain Degenerative disc disease, lumbar GERD (gastroesophageal reflux disease) Scoliosis Hyperlipidemia Surgical History S/P laparoscopic sleeve gastrectomy History of esophagogastroduodenoscopy (EGD) [place] teeth extracted Family History Family/Other No problems noted. 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 Current occupational exposures/hazards: No Cognitive needs: No Hearing needs: No Vision needs: No Telehealth Telehealth Telehealth Platform: Telephone Location of provider rendering services: practice address Location of patient: address on file Patient Identification confirmed using: Name, : Yes Telehealth method: voice only Patient verbally consented to treatment: Yes Patient verbally consented to billing insurance company: Yes Patient informed of any privacy concerns related to visit: Yes Minutes spent on Phone/Video with Pt.: 20 Assessment & Plan Assessment & Plan (1) S/P laparoscopic sleeve gastrectomy: Code(s): Z98.84 - Bariatric surgery status Category: Surgical Plan: Overall, patient is doing well. She is no longer obese and has been congratulated on her efforts. She does wish to change her meal plans slightly to incorporate some different bars and expand her meal plan a little. We will change it accordingly: premier protein 4 oz w 4 oz almond milk, 8-10, 11-1 Fit crunch or Atkins or built or celebrate bar 2-4 seeq 1 scoop (22 gm pro) in 16 oz of water over same time or 6 forks protein and 4 forks veg As far as exercise is concerned, she may incorporate weight training, 25 minutes then 35 minutes of cardio with a goal of 300 calories burned of cardio. Additionally discussed interval training on her treadmill climber at home. We will arrange for follow-up appointments as scheduled. Encouraged to text weight weekly and with any questions or concerns.
--- OUTSIDE RECORDS SUMMARY | 2024-06-22 09:34 | XMS_ITS | Clinical Summary ---
Author Organization [facility] it Address [address] [place] [address] Care Team Providers Care Alumni Coordinator Name Role Phone Marcy Jackson MD Primary Care Prov ider Allergies No known active allergies Medications norethindrone-et hinyl estradiol (Aurovela Fe -, ,) 1 mg-20 mcg (21)/75 mg (7) per [...] 12:00 AM EDT) Case Results Patient Name: ATTA MANZO MR#: [id number] Collected Date: 07/19/2019 Reported Date: 07/23/2019 Specimen #[id number] Final Diagnosis Satisfactory for evaluation. ??Endocervical transformation zone component absent. Negative for Intraepithelial Lesion or Malignancy. Predominance of Coccobacilli consistent with shift in vaginal waldemar. ?? Clinical Diagnosis Z01.419 Z11.3 Note: This Pap test could not be imaged utilizing the Imaging System and required manual review. Source: A: ThinPrep-Cervical- Screen B: HPV Mandatory Electronically Signed Out By [facility]) Addenda/Procedures HPV DNA PROBE, MANDATORY Ordered: ?? 07/20/2019 Reported: ??07/21/2019 HPV HIGH RISK: POSITIVE <<NOTE>>One or more of the following High Risk human papillomavirus (HPV) types has been detected: 16,18,31,33,35,39, 45,51,52,56,58,59, 66,and 68. ??The Aptima HPV nucleic acid amplification assay manufactured by [employer] and performed on the MIGSIF System was used for the qualitative detection [...] liquid based specimens is performed by the [employer] Imaging System unless otherwise stated. Test Performed by: [address] ??[id number] Harpreet Easley Jr., M.D., [facility], Director HISTORICAL TESTING LAB RESULTING AGENCY Comment:MR#: [id number] 07/19/2019 us Tea Diaz MD LAB CYTOLOGY ORDERABLES Final Result HISTORICAL TESTING LAB RESULTING AGENCY from Last 3 Months or Most Recently Relevant to Health Maintenance Care Teams Alumni Coordinator Relationship Specialty Start Date End Date Marcy Jackson MD PCP - General 12/10/10
--- OUTSIDE RECORDS SUMMARY | 2024-06-22 09:34 | XMS_ITS | Encounter Summary ---
Author Organization [facility] Address [address] [place] [address] Care Team Providers Care Business Process Specialist Name Role Phone Unavailable Primary Care Provider Unavailabl e Encounter Details Date Type Department Care Team Description 06/10/2020 Records Encounter HIM OFFICE [address] [place] [address] Provider, Not In System Social History Tobacco [...]
--- OUTSIDE RECORDS SUMMARY | 2024-06-22 09:34 | XMS_ITS | Clinical Summary ---
Author Organization [facility] Address [address] [place] [address] Care Team Providers Care Instrument Technologist Name Role Phone Unavailable Primary Care Provider [...] Advance Directives For more information, please contact: [phone] Latest Code Status on File Code Status Date Activated Date Inactivated Comments Full Code 06/26/2020 8:33 PM 06/29/2020 8:15 PM This co de status was ascertained in the following way: discussion with patient .
== END 2024-06-22 09:21 | disposition home or self-care (01) ==
LOC: HO.HBS 09:01
PROVIDERS: PCP Internal Medicine; Visit Provider Physician Assistant Surgical
DX: E66.3 Overweight (principal); Z68.29 Body mass index [BMI] 29.0-29.9, adult; Z90.3 Acquired absence of stomach [part of]; Z98.84 Bariatric surgery status
CPT/HCPCS: 99213

== ENCOUNTER → 2024-06-22 09:00 | Outpatient (BNVA) | payer OTHER, SELFPAY | PROVIDERS: PCP Internal Medicine; Visit Provider Physician Assistant Surgical ==

== ENCOUNTER 2024-07-30 08:24 | Outpatient (AMB) | payer OTHER, SELFPAY ==
--- NOTE | 2024-07-30 07:50 | MHC.OFFVISWM ---
VS Expanded 07/30/24 07:51 Height 5 ft 5 in Weight 169 lb 7 oz BMI 28.2 Body Fat % 39.4 Fat Free Mass 54.6 Visceral Fat Rating 8 Body Water % 43.2 Muscle Mass/Score 102.9 Basal Metabolic Rate/Score 1,362 Intake Visit Reasons: (TV) PO LSG 03/07/24 Ice Guard Tester Required: No Allergies No Known Allergies Allergy (Verified 06/08/24 10:24) Medication List - Last Reconciled 07/30/24 by RODOLFO Collins bisacodyl (Dulcolax (bisacodyl)) 10 mg [place] DAILY PRN multivitamin 1 tab PO DAILY sennosides (senna) 17.2 mg (2 x 8.6 mg) PO BEDTIME PRN [vitamin d3 and calcium 2 times a [id number] calcium, 1000 vitamin d3 ] HPI Comments Details: This?a?33?yo female who is s/p LSG without hiatal hernia repair on?03/07/2024. Presents for 5 month post op visit. Weight today is 169.7 pounds, with a BMI of 28.2. There has been a 83.3 pound weight loss,(initial weight 253 pounds) since starting the program on 12/02/2023 reflecting a 32.9 % total body weight loss and a weight loss of 56.6 pounds since surgery (operative weight 226.3 pounds) reflecting a 25 % TBWL since surgery. No complaints of nausea, emesis, abdominal pain or reflux. Reports infrequent but normal bowel movements every 2-3 days and uses stool softeners regularly. She states she feels great. She did make a slight error by switching the meal for her bar. Present meal plan includes: premier protein 4 oz w 4 oz almond milk, 8-10, 11-1 Fit crunch or Atkins or built or celebrate bar 2-4 seeq 1 scoop (22 gm pro) in 16 oz of water over same time or 6 forks protein and 4 forks veg Drinking 80 oz water ? Exercise routine includes: tread climber, 40 min, 300-400 lior 7 days per week [facility] Medical History Needle phobia Back pain Degenerative disc disease, lumbar GERD (gastroesophageal reflux disease) Scoliosis Hyperlipidemia Surgical History S/P laparoscopic sleeve gastrectomy History of esophagogastroduodenoscopy (EGD) [place] teeth extracted Family History Family/Other No problems noted. 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 Current occupational exposures/hazards: No Cognitive needs: No Hearing needs: No Vision needs: No Telehealth Telehealth Telehealth Platform: Telephone Location of provider rendering services: practice address Location of patient: address on file Patient Identification confirmed using: Name, : Yes Telehealth method: voice only Patient verbally consented to treatment: Yes Patient verbally consented to billing insurance company: Yes Patient informed of any privacy concerns related to visit: Yes Minutes spent on Phone/Video with Pt.: 15 Assessment & Plan Assessment & Plan (1) S/P laparoscopic sleeve gastrectomy: Code(s): Z98.84 - Bariatric surgery status Category: Surgical Plan: Discussed the importance of following the meal plan. She will switch her last shake with a meal if she wishes. Continue the bar. Additionally, she has been having some constipation and she will initiate fiber gummy 1 daily. She will text with any questions or concerns. Return to clinic for six-month follow-up.
[2024-07-30 07:51] VITALS: BMI 28.2
--- OUTSIDE RECORDS SUMMARY | 2024-07-30 08:52 | XMS_ITS | Encounter Summary ---
Author Organization [facility] Address [address] [place] [address] Care Team Providers Care Thread Grinder Tool Name Role Phone Unavailable Primary Care Provider Unavailabl e Encounter Details Date Type Department Care Team Description 06/10/2020 Records Encounter HIM OFFICE [address] [place] [address] Provider, Not In System Social History Tobacco [...]
--- OUTSIDE RECORDS SUMMARY | 2024-07-30 08:52 | XMS_ITS | Clinical Summary ---
Author Organization [facility] it Address [address] [place] [address] Care Team Providers Care Professor Of Business Administration Name Role Phone Marcy [facility] MD Primary [...] Case Results Patient Name: TATA MANZO MR#: [id number] Collected Date: 07/19/2019 Reported Date: 07/23/2019 Specimen #[id number] Final Diagnosis Satisfactory for evaluation. ??Endocervical transformation zone component absent. Negative for Intraepithelial Lesion or Malignancy. Predominance of Coccobacilli consistent with shift in vaginal waldemar. ?? Clinical Diagnosis Z01.419 Z11.3 Note: This Pap test could not be imaged utilizing the Imaging System and required manual review. Source: A: ThinPrep-Cervical- Screen B: HPV Mandatory Electronically Signed Out By [facility]) Addenda/Procedures HPV DNA PROBE, MANDATORY Ordered: ?? 07/20/2019 Reported: ??07/21/2019 HPV HIGH RISK: POSITIVE <<NOTE>>One or more of the following High Risk human papillomavirus (HPV) types has been detected: 16,18,31,33,35,39, 45,51,52,56,58,59, 66,and 68. ??The Aptima HPV nucleic acid amplification assay manufactured by [employer] and performed on the [employer] System was used for the qualitative detection [...] liquid based specimens is performed by the [employer] Imaging System unless otherwise stated. Test Performed by: [address] ??[id number] Harpreet Easley Jr., M.D., [facility], Director HISTORICAL TESTING LAB RESULTING AGENCY Comment:MR#: [id number] 07/19/2019 us Tea Diaz MD LAB CYTOLOGY ORDERABLES Final Result HISTORICAL TESTING LAB RESULTING AGENCY from Last 3 Months or Most Recently Relevant to Health Maintenance Care Teams Professor Of Business Administration Relationship Specialty Start Date End Date Marcy [place] MD PCP - General 12/10/10
--- OUTSIDE RECORDS SUMMARY | 2024-07-30 08:52 | XMS_ITS | Clinical Summary ---
Author Organization [facility] Address [address] [place] [address] Care Team Providers Care Technician Submarine Cable Equipment Name Role Phone Unavailable Primary Care Provider [...] Advance Directives For more information, please contact: [phone] Latest Code Status on File Code Status Date Activated Date Inactivated Comments Full Code 06/26/2020 8:33 PM 06/29/2020 8:15 PM This co de status was ascertained in the following way: discussion with patient .
== END 2024-07-30 09:20 | disposition home or self-care (01) ==
LOC: HO.HBS 08:24
PROVIDERS: PCP Internal Medicine; Visit Provider Physician Assistant Surgical
DX: E66.3 Overweight (principal); Z68.28 Body mass index [BMI] 28.0-28.9, adult; Z90.3 Acquired absence of stomach [part of]; Z98.84 Bariatric surgery status
CPT/HCPCS: 99213

== ENCOUNTER → 2024-07-30 08:24 | Outpatient (BNVA) | payer OTHER, SELFPAY | PROVIDERS: PCP Internal Medicine; Visit Provider Physician Assistant Surgical | DX: Z98.84 Bariatric surgery status (principal) ==

== ENCOUNTER 2024-08-31 09:53 | Outpatient (AMB) | payer OTHER, SELFPAY ==
--- NOTE | 2024-08-31 09:56 | A.OFFVIS_ITS ---
VS Expanded 08/31/24 10:01 BP 126/67 Pulse 53 Pulse Oximetry 100 Body Fat % 27.6 Body Fat Mass 45.6 Fat Free Mass 119.8 Visceral Fat Rating 4.0 Body Water % 51.9 Body Water Mass 85.8 Muscle Mass/Score 113.8 Basal Metabolic Rate/Score 1,611 Neck Circumference 5 ft 5 in Intake Visit Reasons: (OV) PO LSG 03/07/24 Superintendent Transportation Required: No Allergies No Known Allergies Allergy (Verified 08/31/24 09:59) Medication List - Last Reconciled 08/31/24 by RODOLFO Collins bisacodyl (Dulcolax (bisacodyl)) 10 mg [place] DAILY PRN desogestrel-ethinyl estradiol 0.15-0.03 mg (Isibloom) 1 tab PO DAILY multivitamin 1 tab PO DAILY sennosides (senna) 17.2 mg (2 x 8.6 mg) PO BEDTIME PRN [vitamin d3 and calcium 2 times a [id number] calcium, 1000 vitamin d3 ] HPI Comments Details: This?a?33?yo female who is s/p LSG without hiatal hernia repair on?03/07/2024. Presents for 6 month post op visit. Weight today is 165.4 pounds, with a BMI of 27.5. There has been a 87.6 pound weight loss,(initial weight 253 pounds) since starting the program on 12/02/2023 reflecting a 34.6 % total body weight loss and a weight loss of 60.9 pounds since surgery (operative weight 226.3 pounds) reflecting a 26.9 % TBWL since surgery. No complaints of nausea, emesis, abdominal pain or reflux. Reports infrequent but normal bowel movements every 2- 3 days and uses stool softeners regularly. Taking MVI She states that she has a history of intermittent low back pain. Her last episode was in October, prior to starting our program. This would typically take 3 weeks to recover. She reports she had an episode of low back pain this past Tuesday. She was quite distressed although by Tuesday was up and walking again and 5 days later completely recovered. Present meal plan includes: premier protein 4 oz w 4 oz almond milk, 8-10, 11-1 Seeq protein (22 gm/scoop) 1 scoop in 16 oz water 2-4 meal at 5 with 9 forks protein and 6 forks veg Drinking 80 oz water ? Exercise routine includes: bow flex 40 min 350 lior tread climber, 40 min, 300-400 lior 7 days per week Any post op complications: none MERY: never DM: never HTN: never Hyperlipidemia: never GERD:?0-5 scale ??0 = no symptoms ??1 = symptoms noticeable but not bothersome 2 =symptoms bothersome but not daily ? 3 = symptoms bothersome and daily 4 = symptoms affect daily activities 5 = symptoms are incapacitating, unable to do daily activities ? How bad is the heartburn: 0 ? Heartburn while lying down: 0 ? Heartburn when standing up: 0 ? Heartburn after meals: 0 ? Does heartburn change your diet: 0 ? Does heartburn wake you up from sleep: 0 ? Do you have difficulty swallowin ? Do you have pain with swallowin ? If you take medicine for your reflux, does this affect your daily life: 0 Satisfaction with present condition - satisfied or not satisfied: satisfied [facility] Medical History Needle phobia Back pain Degenerative disc disease, lumbar GERD (gastroesophageal reflux disease) Scoliosis Hyperlipidemia Surgical History S/P laparoscopic sleeve gastrectomy History of esophagogastroduodenoscopy (EGD) [place] teeth extracted Family History Family/Other No problems noted. 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 Current occupational exposures/hazards: No Cognitive needs: No Hearing needs: No Vision needs: No Physical Exam Const General: cooperative and no acute distress Orientation/consciousness: patient oriented x3 Resp Effort & Inspection: normal respiratory effort Auscultation: clear to auscultation bilaterally Cardio Rate: regular rate Rhythm: regular rhythm GI Inspection: Yes normal to inspection and Yes incision (well healed) Palpation (GI): Soft to palpation and no masses Neuro General: patient oriented x3 Assessment & Plan Assessment & Plan (1) S/P laparoscopic sleeve gastrectomy: Code(s): Z98.84 - Bariatric surgery status Category: Surgical Plan: Change meal plans slightly to decrease volume of food at night premier protein 4 oz w 4 oz almond milk, 8-10, 11-1 Seeq protein (22 gm/scoop) 1 scoop in 16 oz water 2-4 meal at 5 with 7 forks protein and 6 forks veg Encouraged to continue exercise. We will check six-month postop labs. We will have her return to the clinic in 3 months. She is doing very well and we will text with any questions or concerns. Orders: Orders Hemoglobin A1c Today E78.5 - Hyperlipidemia, unspecified, Z98.84 - Bariatric surgery status Vitamin B12 and Folate Today E78.5 - Hyperlipidemia, unspecified, Z98.84 - Bariatric surgery status C Reactive Protein Today E78.5 - Hyperlipidemia, unspecified, Z98.84 - Bariatric surgery status Ferritin Today E78.5 - Hyperlipidemia, unspecified, Z98.84 - Bariatric surgery status Insulin Today E78.5 - Hyperlipidemia, unspecified, Z98.84 - Bariatric surgery status Complete Blood Count Auto Diff Today E78.5 - Hyperlipidemia, unspecified, Z98.84 - Bariatric surgery status Lipid Panel Today E78.5 - Hyperlipidemia, unspecified, Z98.84 - Bariatric surgery status IRON PROFILE Today E78.5 - Hyperlipidemia, unspecified, Z98.84 - Bariatric surgery status Comprehensive Met. Panel Today E78.5 - Hyperlipidemia, unspecified, Z98.84 - Bariatric surgery status Zinc Today E78.5 - Hyperlipidemia, unspecified, Z98.84 - Bariatric surgery status Vitamin B1 Today E78.5 - Hyperlipidemia, unspecified, Z98.84 - Bariatric surgery status Vitamin A Today E78.5 - Hyperlipidemia, unspecified, Z98.84 - Bariatric surgery status TSH reflex Free T4 Today E78.5 - Hyperlipidemia, unspecified, Z98.84 - Bariatric surgery status Vitamin D 25-OH Total Today E78.5 - Hyperlipidemia, unspecified, Z98.84 - Bariatric surgery status
[2024-08-31 10:01] VITALS: BP 126/67; PULSE 53; O2SAT 100
--- OUTSIDE RECORDS SUMMARY | 2024-08-31 10:16 | XMS_ITS | Clinical Summary ---
Author Organization [facility] it Address [address] [place] [address] Care Team Providers Care Nanofabrication Specialist Name Role Phone Marcy [place] MD Primary [...] - 2023-2 5 season) 2023 Influenza Vaccine (Season Ended) 2024 HIB Vaccines Aged Out No longer eligi [...] age to complete this topic Meningococcal B Vaccine Aged Out No l onger eligible based on patient's age to complete [...] Case Results Patient Name: TATA MANZO MR#: [id number] Collected Date: 07/19/2019 Reported Date: 07/23/2019 Specimen #[id number] Final Diagnosis Satisfactory for evaluation. ??Endocervical transformation zone component absent. Negative for Intraepithelial Lesion or Malignancy. Predominance of Coccobacilli consistent with shift in vaginal waldmear. ?? Clinical Diagnosis Z01.419 Z11.3 Note: This Pap test could not be imaged utilizing the Imaging System and required manual review. Source: A: ThinPrep-Cervical- Screen B: HPV Mandatory Electronically Signed Out By [facility]) Addenda/Procedures HPV DNA PROBE, MANDATORY Ordered: ?? 07/20/2019 Reported: ??07/21/2019 HPV HIGH RISK: POSITIVE <<NOTE>>One or more of the following High Risk human papillomavirus (HPV) types has been detected: 16,18,31,33,35,39, 45,51,52,56,58,59, 66,and 68. ??The Aptima HPV nucleic acid amplification assay manufactured by [employer] and performed on the [employer] System was used for the qualitative detection [...] liquid based specimens is performed by the [employer] Imaging System unless otherwise stated. Test Performed by: [address] ??[id number] Harpreet Easley Jr., M.D., [facility], Director HISTORICAL TESTING LAB RESULTING AGENCY Comment:MR#: [id number] 07/19/2019 us Tea Diaz MD LAB CYTOLOGY ORDERABLES Final Result HISTORICAL TESTING LAB RESULTING AGENCY from Last 3 Months or Most Recently Relevant to Health Maintenance Care Teams Nanofabrication Specialist Relationship Specialty Start Date End Date Marcy Jackson MD PCP - General 12/10/10
--- OUTSIDE RECORDS SUMMARY | 2024-08-31 10:16 | XMS_ITS | Clinical Summary ---
Author Organization [facility] Address [address] [place] [address] Care Team Providers Care Apple Packing Header Name Role Phone Unavailable Primary Care Provider [...] Advance Directives For more information, please contact: [phone] Latest Code Status on File Code Status Date Activated Date Inactivated Comments Full Code 06/26/2020 8:33 PM 06/29/2020 8:15 PM This co de status was ascertained in the following way: discussion with patient .
--- OUTSIDE RECORDS SUMMARY | 2024-08-31 10:16 | XMS_ITS | Encounter Summary ---
Author Organization [facility] Address [address] [place] [address] Care Team Providers Care Us Customs And Border Officer Name Role Phone Unavailable Primary Care Provider Unavailabl e Encounter Details Date Type Department Care Team Description 06/10/2020 Records Encounter HIM OFFICE [address] [place] [address] Provider, Not In System Social History Tobacco [...]
== END 2024-08-31 10:30 | disposition home or self-care (01) ==
LOC: HO.HBS 09:54
PROVIDERS: PCP Internal Medicine; Visit Provider Physician Assistant Surgical
DX: E66.3 Overweight (principal); Z68.27 Body mass index [BMI] 27.0-27.9, adult; Z98.84 Bariatric surgery status
CPT/HCPCS: 99213

== ENCOUNTER 2024-11-03 07:38 | Outpatient (REF) | payer OTHER, SELFPAY ==
[2024-11-03 08:18] LABS: MANUAL DIFF FLAG NO
[2024-11-03 08:31] LABS: Hematocrit 44.6 % (37.0-47.0); Hemoglobin 14.3 g/dl (12.0-16.0); Imm Gran Abs Auto 0.01 X10*3/uL (0.00-0.03); Imm Gran Pct Auto 0.2 % (0.0-0.4); Lymphocytes Absolute Auto 1.6 X10*3/uL (1.2-4.9); Mean Corpuscular HGB Conc 32.1 g/dl (31.0-35.0); Mean Corpuscular Hemoglobin 26.8 pg (27.0-33.0); Mean Corpuscular Volume 83.7 fL (80.0-98.0); NRBC Abs Auto 0.000 X10*3/uL (0.0-0.012); NRBC Pct Auto 0.0 /100WBC (0.0-0.2); Platelet Count 154 X10*3/uL (160-400); Red Blood Count 5.33 X10*6/uL (4.20-5.50); White Blood Count 4.2 X10*3/uL (4.8-10.8)
[2024-11-03 09:12] LABS: Alanine Aminotransferase 19 U/L (0-31); Albumin Level 4.2 g/dL (3.5-5.0); Alkaline Phosphatase 46 U/L (39-117); Anion Gap 8 (12-20); Aspartate Amino Transferase 20 U/L (5-31); Blood Urea Nitrogen 12 mg/dL (9-16); Calcium 9.5 mg/dL (8.4-10.2); Carbon Dioxide 28 mmol/L (22-29); Chloride 106 mmol/L (96-108); Cholesterol 187 mg/dL (<200); Estimated Glomerular Filt Rate > 60; HDL Cholesterol 55 mg/dL (>40); Iron 107 mcg/dL (30-160); Percent Iron Saturation 30 % (15-50); Potassium 4.3 mmol/L (3.3-5.1); Sodium 138 mmol/L (135-145); Total Iron Binding Capacity 352 mcg/dL (228-428); Total Protein 7.2 g/dL (6.5-8.0); Triglycerides 83 mg/dL (<150); Unsaturated Iron Binding 245 ug/dL
[2024-11-03 09:16] LABS: Hemoglobin A1C 120.5064 umol/L; Total Hemoglobin (HGBA1C) 3742.6961 umol/L
[2024-11-03 09:30] LABS: Ferritin 36 ng/mL (10-122)
[2024-11-03 09:41] LABS: Folate 13.8 ng/mL (> or = 4.0); Vitamin B12 594 pg/mL (200-900)
== END 2024-11-03 07:39 | disposition home or self-care (01) ==
LOC: HO.LAB 07:38
PROVIDERS: PCP Internal Medicine; Visit Provider Physician Assistant Surgical
DX: E78.5 Hyperlipidemia, unspecified (principal); Z98.84 Bariatric surgery status
CPT/HCPCS: 36415; 80053; 80061; 82306; 82607; 82728; 82746; 83036; 83525; 83540; 84425; 84443; 84590; 84630; 85025; 86140

== ENCOUNTER 2024-11-30 08:30 | Outpatient (AMB) | payer OTHER, SELFPAY ==
--- OUTSIDE RECORDS SUMMARY | 2024-11-24 23:59 | XMS_ITS | Continuity of Care Document ---
Author Organization [facility] Address [address] [place] [address]- Care Team Providers Care Hot Die Press Operator Name Role Phone Not on Staff, PCP Primary Care Physician Unavail able Encounter [facility] [place] [place] Date(s): 10/25/24 - 11/24/[address] [address]- Attending Physician: Viviana Harden Admitting Physician: Viviana Harden Referring Physician: Viviana Harden Encounter Type: Triage Allergies, Adverse Reactions, Alerts No Known Allergies Immunizations Given and Recorded Vaccine Date Status Refusal Reason SARS-CoV-2 (COVID-19) mRNA BNT-162b2 vac 09/30/20 Recorded SARS-CoV-2 (COVID-19) mRNA BNT-162b2 vac 09/09/20 Recorded Medications Biotin By Mouth, Daily, 0 Refills, Maintenance, 01/01/22 3:01:00 PM EDT, Partial fill upon patient request if the prescription is for a schedule II opioid drug. Start Date: 01/01/22 Status: Ordered Repeat number: 1 Isibloom 0.15 mg-0.03 mg oral tablet 1 tablet, By Mouth, Daily, # 84 tablet, 0 Refills, Maintenance, 11/02/24 8:38:00 AM EDT, [id number], 84, TAKE 1 TABLET BY MOUTH DAILY, 165, cm, 07/25/24 13:49:00 EDT, Height, 87.1, kg, 05/29/24 2:03:00 EST, Dry Weight Start Date: 11/02/24 Status: Ordered Quantity: 84.0 Unit: tablet Repeat number: 1 Multivitamin Daily, 0 Refills, Maintenance, 01/01/22 3:01:00 PM EDT, Partial fill upon patient request if the prescription is for a schedule II opioid drug. Start Date: 01/01/22 Status: Ordered Repeat number: 1 Probiotic Formula By Mouth, Daily, 0 Refills, Maintenance, 01/01/22 3:01:00 PM EDT, Partial fill upon patient request if the prescription is for a schedule II opioid drug. Start Date: 01/01/22 Status: Ordered Repeat number: 1 Problem List Condition Confirmation Course Effective Dates Status H ealth Status Informant Acne Confirmed Active Low back pain Confirmed Active Lumbar radiculopathy Confirmed Active Numbness of left lower extremity Confirmed Active Gluteal cleft wound Confirmed Active Social History Social History Type Response Smoking Status Former smoker, quit more than 30 days ago; Type: Cigarettes; Tobacco use times per day: 1 pack/day; Started at age: 13; Stopped at age: 28; entered on: 01/01/22 Sex Sex Representation Female (finding) Patient Care team information Care Team Personnel Name: Not on Staff, PCP Position: [facility] Physician (General Medicine) Member Role: PCP Care Team Related Persons Name: BORIS SANDS Insurance Providers Guarantor name: [employer] [facility] Information #: 1 Payer: [place] [employer] Payer Identifier: NA Member Number: [id number] Group Number: [id number] Subscriber Identifier: [id number] Relationship to Subscriber: self Coverage Type: Managed Care (Private) Coverage Verification Date: NA Telecom: [employer] Address:
--- NOTE | 2024-11-30 08:11 | A.OFFVIS_ITS ---
VS Expanded 11/30/24 08:12 Height 5 ft 5 in Weight 164 lb 6 oz BMI 27.4 Body Fat % 38.4 Fat Free Mass 101.6 Visceral Fat Rating 7 Body Water % 43.9 Muscle Mass/Score 53.7 Basal Metabolic Rate/Score 1,338 Intake Visit Reasons: (TV) PO LSG 03/07/24 Histology Aide Required: No Allergies No Known Allergies Allergy (Verified 08/31/24 09:59) Medication List - Last Reconciled 11/30/24 by RODOLFO Collins bisacodyl (Dulcolax (bisacodyl)) 10 mg [place] DAILY PRN desogestrel-ethinyl estradiol 0.15-0.03 mg (Isibloom) 1 tab PO DAILY multivitamin 1 tab PO DAILY sennosides (senna) 17.2 mg (2 x 8.6 mg) PO BEDTIME PRN [vitamin d3 and calcium 2 times a [id number] calcium, 1000 vitamin d3 ] HPI Comments Details: This?a?34?yo female who is s/p LSG without hiatal hernia repair on?03/07/2024. Presents for 9 month post op visit. Weight today is 164.6 pounds, with a BMI of 27.4. There has been a 88.4 pound weight loss,(initial weight 253 pounds) since starting the program on 12/02/2023 reflecting a 34.6 % total body weight loss and a weight loss of 61.7 pounds since surgery (operative weight 226.3 pounds) reflecting a 27.2 % TBWL since surgery. No complaints of nausea, emesis, abdominal pain or reflux. Reports infrequent but normal bowel movements every 2- 3 days and uses stool softeners regularly. Taking MVI She states that she has a history of intermittent low back pain. Physically feeling great. Fell off the meal plan. She went on vacation for her birthday and ate foods off the plan. She has also had increase in stress level. Hx of neural feedback and lost her therapist in April due to insurance. Not following any meal plan Previous meal plan includes: premier protein 4 oz w 4 oz almond milk, 8-10, 11-1 Seeq protein (22 gm/scoop) 1 scoop in 16 oz water 2-4 meal at 5 with 7 forks protein and 6 forks veg Drinking 80 oz water ? Exercise routine includes: bow flex 40 min 350 lior tread climber, 40 min, 300-400 lior 7 days per week [facility] Medical History Needle phobia Back pain Degenerative disc disease, lumbar GERD (gastroesophageal reflux disease) Scoliosis Hyperlipidemia Surgical History S/P laparoscopic sleeve gastrectomy History of esophagogastroduodenoscopy (EGD) [place] teeth extracted Family History Family/Other No problems noted. 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 Current occupational exposures/hazards: No Cognitive needs: No Hearing needs: No Vision needs: No Telehealth Telehealth Telehealth Platform: Telephone Location of provider rendering services: practice address Location of patient: address on file Patient Identification confirmed using: Name, : Yes Telehealth method: voice only Patient verbally consented to treatment: Yes Patient verbally consented to billing insurance company: Yes Patient informed of any privacy concerns related to visit: Yes Minutes spent on Phone/Video with Pt.: 20 Assessment & Plan Assessment & Plan (1) S/P laparoscopic sleeve gastrectomy: Code(s): Z98.84 - Bariatric surgery status Category: Surgical Plan: Patient went on vacation around her birthday and has been unable to resume her meal plan. We discussed the importance of doing so, giving herself the karishma to forgive herself to allow herself to resume healthier habits. She will return to the meal plan as listed above, recommended at our last visit. She continues to exercise regularly and her lab data from October was acceptable. She will return to the office in 4-6 weeks. Texting with any questions or concerns.
[2024-11-30 08:12] VITALS: BMI 27.4
--- OUTSIDE RECORDS SUMMARY | 2024-11-30 09:03 | XMS_ITS ---
[facility] Name [facility] History of Medication Use Medication Directions Dispensed Refills Start Date End Date Stat us None recorded. (No additional sig information) completed Encounters Encounter Type Encounter Reason Primary Diagnosis Location Date [facility] 10/09/2021 Care Team Organization Name Specialty Phone Email Start Date End [facility] 03/02/2022 12/12/2023 [facility] 10/12/2021 [facility] 10/09/2021 10/09/2021
--- OUTSIDE RECORDS SUMMARY | 2024-11-30 09:03 | XMS_ITS | Clinical Summary ---
Author Organization [facility] it Address [address] [place] [address] Care Team Providers Care Motion Picture Narrator Name Role Phone Marcy Jackson MD Primary [...] series) 10/19/2007 Cholesterol Screening (Lipid Panel) 03/27/2022 HIV Screening 03/27/2022 Hepatitis C Screening 03/27/2022 Social Influencers of Health Screening 03/27/2022 Hypertension/CHF/CAD Annual BMP Blood Test 04/23/2022 06/27/2020, 06/26/2020 Cervical Cancer Screening: P ap Smear 07/18/2022 07/19/2019 COVID-19 Vaccine (1 - 2023-2 5 season) 2023 Depression Screening 04/25/2024 Influenza Vaccine (#1) 2024 HIB Vaccines Aged Out No longer [...] 5 Years) and At-Risk Patients (6 to 49 Years) Aged Out No longer eligible b [...] Case Results Patient Name: TATA MANZO MR#: [id number] Collected Date: 07/19/2019 Reported Date: 07/23/2019 Specimen #[id number] Final Diagnosis Satisfactory for evaluation. Endocervical transformation zone component absent. Negative for Intraepithelial Lesion or Malignancy. Predominance of Coccobacilli consistent with shift in vaginal waldemar. Clinical Diagnosis Z01.419 Z11.3 Note: This Pap test could not be imaged utilizing the Imaging System and required manual review. Source: A: ThinPrep-Cervical- Screen B: HPV Mandatory Electronically Signed Out By [facility]) Addenda/Procedures HPV DNA PROBE, MANDATORY Ordered: 07/20/2019 Reported: 07/21/2019 HPV HIGH RISK: POSITIVE <<NOTE>>One or more of the following High Risk human papillomavirus (HPV) types has been detected: 16,18,31,33,35,39, 45,51,52,56,58,59, 66,and 68. The Aptima HPV nucleic acid amplification assay manufactured by [employer] and performed on the [employer] System was used for the qualitative detection [...] screening: Interim clinical guidance, Gynecol Oncol. 2015 May,136(2):178-82. Procedure/Addend um Electronically Signed Out By System Interface Note: The Pap test is a screening test with an inherent false negative rate. Automated prescreening of all liquid based specimens is performed by the [employer] Imaging System unless otherwise stated. Test Performed by: [address] [address] Harpreet Easley Jr., M.D., FCAP, Director [facility] Comment:MR#: [id number] 07/19/2019 us Tea Diaz MD LAB CYTOLOGY ORDERABLES Final Result HISTORICAL TESTING LAB RESULTING [facility]ENCY from Last 3 Months or Most Recently Relevant to Health Maintenance Care Teams Motion Picture Narrator Relationship Specialty Start Date End Date Marcy Jackson MD PCP - General 12/10/10
--- OUTSIDE RECORDS SUMMARY | 2024-11-30 09:03 | XMS_ITS | Encounter Summary ---
Author Organization [facility] Address [address] [place] [address] Care Team Providers Care Wire Brusher Name Role Phone Unavailable Primary Care Provider Unavailabl e Encounter Details Date Type Department Care Team Description 06/10/2020 Records Encounter HIM OFFICE [address] [place] [address] Provider, Not In System Social History Tobacco [...]
== END 2024-11-30 08:52 | disposition home or self-care (01) ==
LOC: HO.HBS 08:51
PROVIDERS: PCP Internal Medicine; Visit Provider Physician Assistant Surgical
DX: E66.3 Overweight (principal); Z68.27 Body mass index [BMI] 27.0-27.9, adult; Z90.3 Acquired absence of stomach [part of]; Z98.84 Bariatric surgery status
CPT/HCPCS: 99213

== ENCOUNTER 2025-01-21 11:13 | Outpatient (AMB) | payer OTHER, SELFPAY ==
--- NOTE | 2025-01-21 11:10 | A.OFFVIS_ITS ---
VS Expanded 01/21/25 11:11 Height 5 ft 5 in Weight 166 lb 6 oz BMI 27.7 Intake Visit Reasons: (TV) PO LSG 03/07/24 Allergies No Known Allergies Allergy (Verified 08/31/24 09:59) Medication List - Last Reconciled 01/21/25 by RODOLFO Ga bisacodyl (Dulcolax (bisacodyl)) 10 mg AR DAILY PRN desogestrel-ethinyl estradiol 0.15-0.03 mg (Isibloom) 1 tab PO DAILY multivitamin 1 tab PO DAILY sennosides (senna) 17.2 mg (2 x 8.6 mg) PO BEDTIME PRN [vitamin d3 and calcium 2 times a [id number] calcium, 1000 vitamin d3 ] HPI Comments Details: This a 34 yo female who is s/p LSG without hiatal hernia repair on 03/07/2024. Presents for 10.5 month post op visit. Weight today is 164.6 pounds, with a BMI of 27.4. Initial weight 253 pounds) since starting the program on 12/02/2023 reflecting a 34.6 % total body weight loss and a weight loss of 61.7 pounds since surgery (operative weight 226.3 pounds) reflecting a 27.2 % TBWL since surgery. No complaints of nausea, emesis, abdominal pain or reflux. Reports infrequent but normal bowel movements every 2-3 days and uses stool softeners regularly. Taking MVI + Ca. Physically feeling great. Hx of neural feedback and lost her therapist in April due to insurance. She notes a 1.3lb muscle gain from last visit with Vaibhav on her body composition. Does notice more emotional/stress eating, on a few waiting lists for a new therapist. Previous meal plan includes: premier protein 4 oz w 4 oz almond milk x2 sometimes will have a protein bar for lunch, or a meal of solid food meal at 5 with 7 forks protein and 6 forks veg Drinking 80 oz water and 1 packet liquid IV per day also if she does not get enough fluids the day before Exercise routine includes: bow flex 40 min 350 lior tread climber, 40 min, 300-400 lior 7 days per week started lifting weights in the gym to help build muscle Have you been diagnosed with reflux (GERD)? Score 0-5: 0=no symptoms, 1=noticeable but not bothersome (slight or occasional), 2=noticeable, bothersome but not daily, 3=bothersome and daily, 4=affects daily activities, 5=incapacitating, unable to do daily activities How bad is the heartburn: 0 Heartburn when lying down: 0 Heartburn when standing up: 0 Heartburn after meals: 0 Does heartburn change your diet: 0 Does heartburn wake you up from sleep: 0 Do you have difficulty swallowin Do you have pain with swallowin If you take medication for reflux, does this affect your daily life: 0 Total score: 0 PFSH Medical History Needle phobia Back pain Degenerative disc disease, lumbar GERD (gastroesophageal reflux disease) Scoliosis Hyperlipidemia Surgical History S/P laparoscopic sleeve gastrectomy History of esophagogastroduodenoscopy (EGD) [place] teeth extracted Family History Family/Other No problems noted. 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 Current occupational exposures/hazards: No Cognitive needs: No Hearing needs: No Vision needs: No Telehealth Telehealth Telehealth Platform: Telephone Location of provider rendering services: other Location of patient: address on file Patient Identification confirmed using: Name, : Yes Telehealth method: voice only Patient verbally consented to treatment: Yes Patient verbally consented to billing insurance company: Yes Patient informed of any privacy concerns related to visit: Yes Minutes spent on Phone/Video with Pt.: 15 Assessment & Plan Assessment & Plan (1) S/P laparoscopic sleeve gastrectomy: Code(s): Z98.84 - Bariatric surgery status Category: Medical (2) Overweight: Code(s): E66.3 - Overweight Category: Medical Plan Pt will get in touch with a therapist to help with emotional eating. Continue high protein meal plan. She will text me weekly with weight measurements. She is focusing on strength training. Had labs done in October. RTC 4 months (30 min phone visit).
[2025-01-21 11:11] VITALS: BMI 27.7
--- OUTSIDE RECORDS SUMMARY | 2025-01-21 12:43 | XMS_ITS | Clinical Summary ---
Author Organization [facility] Address [address] [place] [id number] Care Team Providers Care Turret Lathe Machinist Name Role Phone Unavailable Primary Care Provider [...] 64 06/29/2020 8:16 AM EST Temperature 36.4 C (97.5 F) 06/29/2020 8:16 AM EST Respiratory Rate 18 06/29/2020 8:16 AM EST [...] ap Smear) 07/18/2022 07/19/2019 Influenza Vaccine (#1) 2024 Pneumococcal Vaccine Aged Out No long er eligible based on patient's age to complete this topic RSV Ped < 20 months Aged Out No longe r eligible based on patient's age to complete this topic Advance Directives For more information, please contact: [phone] Latest Code Status on File Code Status Date Activated Date Inactivated Comments Full Code 06/26/2020 8:33 PM 06/29/2020 8:15 PM This co de status was ascertained in the following way: discussion with patient .
--- OUTSIDE RECORDS SUMMARY | 2025-01-21 12:43 | XMS_ITS | Encounter Summary ---
Author Organization [facility] Address [address] [place] [address] Care Team Providers Care Artist Representative Name Role Phone Unavailable Primary Care Provider Unavailabl e Encounter Details Date Type Department Care Team Description 06/10/2020 Records Encounter HIM OFFICE [address] [place] [address] Provider, Not In System Social History Tobacco [...]
== END 2025-01-21 11:23 | disposition home or self-care (01) ==
LOC: HO.HBS 11:13
PROVIDERS: PCP Internal Medicine; Visit Provider Physician Assistant Surgical
DX: E66.3 Overweight (principal); Z68.27 Body mass index [BMI] 27.0-27.9, adult; Z90.3 Acquired absence of stomach [part of]; Z98.84 Bariatric surgery status
CPT/HCPCS: 99214